=== PATIENT | female | born 1945 | race Caucasian/White ===

== ENCOUNTER 2019-01-28 10:53 | Inpatient (IN) | payer MEDICARE, OTHER ==
[2019-01-28] MEDS ORDERED: ACETAMINOPHEN TAB 500 MG TAB PO STA (11:16)
[2019-01-28] MEDS ORDERED: SODIUM CHLORIDE 0.9% 1,000 ML IV STA (11:16)
[2019-01-28] MEDS ORDERED: ONDANSETRON 4 MG/2 ML VIAL IVP STA (11:17)
--- NOTE | 2019-01-28 11:29 | ED ---
General Adult HPI - General Chief complaint: Fever Stated complaint: poss uti Time Seen by Provider: 01/28/19 11:07 Source: patient, family, EMS Mode of arrival: EMS Limitations: physical limitation - History of Present Illness Initial comments: Patient presents to the ED by ambulance for evaluation with her son at bedside. Per son, the patient has gradually been becoming more generally weak over the past week or so. Patient also reports having a cough, runny nose, urinary frequency and nausea over the past week or so. Per son, the patient also slid out of her bed onto the carpeted floor 2 days ago. Patient denies any injury from her fall, and she denies head injury or LOC, but she does admit to having bilateral groin pain of uncertain chronicity. Patient is noted to have a fever on arrival to the ED, and she denies taking any antipyretic medication today. Patient denies headache, focal numbness/weakness/neuro deficit, neck or back pain, sore throat, chest pain, shortness of breath, hemoptysis, palpitations, abdominal pain, vomiting or diarrhea, bloody or melanotic stool, dysuria, hematuria, rash, or any other symptoms or complaints. Patient was given a 250 mL IV fluid bolus by EMS. - Related Data Home Medications Medication Instructions Recorded Confirmed Aspirin 81 mg PO DAILY 11/28/15 12/06/15 Atorvastatin [Lipitor] 10 mg PO DAILY 11/28/15 12/06/15 Carbidopa-Levodopa 25-100 mg 1 each PO TID 11/28/15 12/06/15 [Sinemet 25-100 mg] Losartan Potassium [Cozaar] 100 mg PO DAILY 11/28/15 12/06/15 Metoprolol Succinate (ER) [Toprol 50 mg PO DAILY 11/28/15 12/06/15 XL] Multivit-Min/Iron/Folic/Lutein 1 each PO DAILY 11/28/15 12/06/15 [Centrum Silver Women Tablet] [place]-3 Fatty Acids/Fish Oil [Fish 1 each PO TID 11/28/15 12/06/15 Oil 1,000 mg Softgel] amLODIPine BESYLATE [Norvasc] 10 mg PO DAILY 11/28/15 12/06/15 ALPRAZolam [Xanax] 0.25 mg PO TID PRN 12/06/15 12/06/15 Baclofen 10 mg PO TID PRN 12/06/15 12/06/15 traMADol HCL [Ultram] 50 mg PO Q6HR PRN 12/06/15 12/06/15 Previous Rx's Medication Instructions Recorded Cephalexin [Keflex] 500 mg PO Q8HR #10 cap 12/07/15 Allergies Allergy/AdvReac Type Severity Reaction Status Date / Time No Known Allergies Allergy Verified 01/28/19 11:17 Review of Systems ROS Statement: Those systems with pertinent positive or pertinent negative responses have been documented in the HPI. ROS Other: All systems not noted in ROS Statement are negative. Past Medical History Past Medical History: Osteoarthritis (OA) Additional Past Medical History / Comment(s): SEE DR LOU'S H&P,PARKINSON'S,100% OCCLUDED RIGHT CAROTED ARTERY,HX KIDNEY STONES, History of Any Multi-Drug Resistant Organisms: None Reported Past Surgical History: Joint Replacement, Orthopedic Surgery Additional Past Surgical History / Comment(s): RIGHT ANKLE REPAIRED,LEFT KNEE REPLACED Past Anesthesia/Blood Transfusion Reactions: No Reported Reaction Past Psychological History: Anxiety Smoking Status: Former smoker Past Alcohol Use History: None Reported Past Drug Use History: None Reported - Past Family History Mother Family Medical History: No Reported History Father Family Medical History: AICD/Pacemaker Sister(s) Family Medical History: Cancer Additional Family Medical History / Comment(s): BREAST General Exam General appearance: alert, in no apparent distress Head exam: Present: atraumatic, normocephalic Eye exam: Present: normal appearance, PERRL, EOMI ENT exam: Present: normal oropharynx, mucous membranes dry Neck exam: Present: normal inspection, other (Trachea is in midline). Absent: tenderness, meningismus Respiratory exam: Present: normal lung sounds bilaterally. Absent: respiratory distress, wheezes, rales, rhonchi, stridor Cardiovascular Exam: Present: regular rate, normal rhythm, normal heart sounds, other (Normal radial pulses bilaterally) GI/Abdominal exam: Present: soft. Absent: distended, tenderness, guarding External exam: Present: normal external exam. Absent: erythema Extremities exam: Present: other (Ecchymosis is noted to right buttock region posteriorly; pelvis is stable and nontender). Absent: tenderness, pedal edema, calf tenderness Back exam: Absent: tenderness, CVA tenderness (R), CVA tenderness (L) Neurological exam: Present: alert, oriented X3. Absent: motor sensory deficit Psychiatric exam: Present: normal affect, normal mood Skin exam: Present: warm, dry, intact, normal color. Absent: rash Course Vital Signs 01/28/19 01/28/19 01/28/19 11:04 11:20 12:05 Temperature 102.5 F H Pulse Rate 69 68 69 Respiratory 18 18 18 Rate Blood Pressure 75/50 104/50 100/85 O2 Sat by Pulse 93 L 94 L 94 L Oximetry 01/28/19 01/28/19 12:58 13:33 Temperature 100.8 F H Pulse Rate 60 60 Respiratory 18 18 Rate Blood Pressure 86/45 91/48 O2 Sat by Pulse 93 L 93 L Oximetry - Reevaluation(s) Reevaluation #1: 01/28/19 12:59 Patient remains alert and breathing comfortably, and she denies development of any new symptoms while in the ED. Patient's blood pressure has improved with IV fluid bolus. IV antibiotics are currently infusing. Patient and son are aware of the patient's test results, and they both agree with hospital admission at t his time. 01/28/19 13:53 Case, H&P, test results and ED management thus far were discussed with Dr. Francis (hospitalist). She accepts hospital floor admission. She has no further recommendations at this time. EKG Findings - EKG Comments: EKG Findings:: Normal sinus rhythm, no ectopy, right bundle branch block, ventricular rate of 68 bpm, normal MI interval, QRS interval of 152 ms, normal QT interval, inferolateral T-wave abnormality Medical Decision Making - Medical Decision Making I suspect that that the patient's fever and symptoms are likely secondary to UTI, as well as community-acquired pneumonia. Patient has been treated with IV fluids and IV antibiotics and ED. Given the patient's low blood pressure, patient was given a 30 mL/kg IV fluid bolus (which is still infusing at this time). Patient's blood pressure has improved. Patient's lactic acid level is within normal limits. Patient's troponin is just minimally elevated, and patient denies having any chest pain or dyspnea. I suspect that the patient's elevated troponin is likely secondary to her infectious process. Patient has been accepted for hospital admission by Dr. Francis. - Lab Data Result diagrams: 01/28/19 11:25 01/28/19 11:25 Lab Results 01/28/19 01/28/19 01/28/19 Range/Units 11:25 11:25 11:25 WBC 10.5 (3.8-10.6) k/uL RBC 4.63 (3.80-5.40) m/uL Hgb 14.4 (11.4-16.0) gm/dL Hct 42.2 (34.0-46.0) % MCV 91.2 (80.0-100.0) fL MCH 31.2 (25.0-35.0) pg MCHC 34.2 (31.0-37.0) g/dL RDW 12.8 (11.5-15.5) % Plt Count 129 L (150-450) k/uL Neutrophils % 95 % Lymphocytes % 2 % Monocytes % 2 % Eosinophils % 0 % Basophils % 0 % Neutrophils # 9.9 H (1.3-7.7) k/uL Lymphocytes # 0.2 L (1.0-4.8) k/uL Monocytes # 0.2 (0-1.0) k/uL Eosinophils # 0.0 (0-0.7) k/uL Basophils # 0.0 (0-0.2) k/uL PT (9.0-12.0) sec INR (<1.2) APTT (22.0-30.0) sec Sodium 132 L (137-145) mmol/L Potassium 3.8 (3.5-5.1) mmol/L Chloride 97 L (98-107) mmol/L Carbon Dioxide 22 (22-30) mmol/L Anion Gap 13 mmol/L BUN 47 H (7-17) mg/dL Creatinine 1.84 H (0.52-1.04) mg/dL Est GFR (CKD-EPI)AfAm 31 (>60 ml/min/1.73 sqM) Est GFR (CKD-EPI)NonAf 27 (>60 ml/min/1.73 sqM) Glucose 96 (74-99) mg/dL Plasma Lactic Acid Dario 1.9 (0.7-2.0) mmol/L Calcium 8.4 (8.4-10.2) mg/dL Total Bilirubin 1.8 H (0.2-1.3) mg/dL AST 61 H (14-36) U/L ALT 16 (9-52) U/L Alkaline Phosphatase 93 (38-126) U/L Troponin I (0.000-0.034) ng/mL Total Protein 6.0 L (6.3-8.2) g/dL Albumin 3.0 L (3.5-5.0) g/dL Lipase 55 (23-300) U/L Urine Color Urine Appearance (Clear) Urine pH (5.0-8.0) Ur Specific [place] (1.001-1.035) Urine Protein (Negative) Urine Glucose (UA) (Negative) Urine Ketones (Negative) Urine Blood (Negative) Urine Nitrite (Negative) Urine Bilirubin (Negative) Urine Urobilinogen (<2.0) mg/dL Ur Leukocyte Esterase (Negative) Urine RBC (0-5) /hpf Urine WBC (0-5) /hpf Urine WBC Clumps (None) /hpf Urine Bacteria (None) /hpf Urine Mucus (None) /hpf Influenza Type A RNA (Not Detectd) Influenza Type B (PCR) (Not Detectd) 01/28/19 01/28/19 01/28/19 Range/Units 11:25 11:25 11:53 WBC (3.8-10.6) k/uL RBC (3.80-5.40) m/uL Hgb (11.4-16.0) gm/dL Hct (34.0-46.0) % MCV (80.0-100.0) fL MCH (25.0-35.0) pg MCHC (31.0-37.0) g/dL RDW (11.5-15.5) % Plt Count (150-450) k/uL Neutrophils % % Lymphocytes % % Monocytes % % Eosinophils % % Basophils % % Neutrophils # (1.3-7.7) k/uL Lymphocytes # (1.0-4.8) k/uL Monocytes # (0-1.0) k/uL Eosinophils # (0-0.7) k/uL Basophils # (0-0.2) k/uL PT 14.1 H (9.0-12.0) sec INR 1.4 H (<1.2) APTT 34.0 H (22.0-30.0) sec Sodium (137-145) mmol/L Potassium (3.5-5.1) mmol/L Chloride (98-107) mmol/L Carbon Dioxide (22-30) mmol/L Anion Gap mmol/L BUN (7-17) mg/dL Creatinine (0.52-1.04) mg/dL Est GFR (CKD-EPI)AfAm (>60 ml/min/1.73 sqM) Est GFR (CKD-EPI)NonAf (>60 ml/min/1.73 sqM) Glucose (74-99) mg/dL Plasma Lactic Acid Dario (0.7-2.0) mmol/L Calcium (8.4-10.2) mg/dL Total Bilirubin (0.2-1.3) mg/dL AST (14-36) U/L ALT (9-52) U/L Alkaline Phosphatase (38-126) U/L Troponin I 0.039 H* (0.000-0.034) ng/mL Total Protein (6.3-8.2) g/dL Albumin (3.5-5.0) g/dL Lipase (23-300) U/L Urine Color Urine Appearance (Clear) Urine pH (5.0-8.0) Ur Specific [place] (1.001-1.035) Urine Protein (Negative) Urine Glucose (UA) (Negative) Urine Ketones (Negative) Urine Blood (Negative) Urine Nitrite (Negative) Urine Bilirubin (Negative) Urine Urobilinogen (<2.0) mg/dL Ur Leukocyte Esterase (Negative) Urine RBC (0-5) /hpf Urine WBC (0-5) /hpf Urine WBC Clumps (None) /hpf Urine Bacteria (None) /hpf Urine Mucus (None) /hpf Influenza Type A RNA Not Detected (Not Detectd) Influenza Type B (PCR) Not Detected (Not Detectd) 01/28/19 Range/Units 12:05 WBC (3.8-10.6) k/uL RBC (3.80-5.40) m/uL Hgb (11.4-16.0) gm/dL Hct (34.0-46.0) % MCV (80.0-100.0) fL MCH (25.0-35.0) pg MCHC (31.0-37.0) g/dL RDW (11.5-15.5) % Plt Count (150-450) k/uL Neutrophils % % Lymphocytes % % Monocytes % % Eosinophils % % Basophils % % Neutrophils # (1.3-7.7) k/uL Lymphocytes # (1.0-4.8) k/uL Monocytes # (0-1.0) k/uL Eosinophils # (0-0.7) k/uL Basophils # (0-0.2) k/uL PT (9.0-12.0) sec INR (<1.2) APTT (22.0-30.0) sec Sodium (137-145) mmol/L Potassium (3.5-5.1) mmol/L Chloride (98-107) mmol/L Carbon Dioxide (22-30) mmol/L Anion Gap mmol/L BUN (7-17) mg/dL Creatinine (0.52-1.04) mg/dL Est GFR (CKD-EPI)AfAm (>60 ml/min/1.73 sqM) Est GFR (CKD-EPI)NonAf (>60 ml/min/1.73 sqM) Glucose (74-99) mg/dL Plasma Lactic Acid Dario (0.7-2.0) mmol/L Calcium (8.4-10.2) mg/dL Total Bilirubin (0.2-1.3) mg/dL AST (14-36) U/L ALT (9-52) U/L Alkaline Phosphatase (38-126) U/L Troponin I (0.000-0.034) ng/mL Total Protein (6.3-8.2) g/dL Albumin (3.5-5.0) g/dL Lipase (23-300) U/L Urine Color Yellow Urine Appearance Cloudy H (Clear) Urine pH 5.5 (5.0-8.0) Ur Specific [place] 1.013 (1.001-1.035) Urine Protein 1+ H (Negative) Urine Glucose (UA) Negative (Negative) Urine Ketones Negative (Negative) Urine Blood Moderate H (Negative) Urine Nitrite Negative (Negative) Urine Bilirubin Negative (Negative) Urine Urobilinogen 2.0 (<2.0) mg/dL Ur Leukocyte Esterase Large H (Negative) Urine RBC 33 H (0-5) /hpf Urine WBC 158 H (0-5) /hpf Urine WBC Clumps Many H (None) /hpf Urine Bacteria Many H (None) /hpf Urine Mucus Rare H (None) /hpf Influenza Type A RNA (Not Detectd) Influenza Type B (PCR) (Not Detectd) - Radiology Data Radiology results: image reviewed (Chest x-ray shows cardiomegaly and left basilar infiltrate; pelvis x-ray is negative for fracture or dislocation) Disposition Clinical Impression: Generalized weakness, Acute febrile illness, Fall, Contusion, buttock, UTI (urinary tract infection), Acute renal insufficiency, Pneumonia, Elevated troponin Disposition: ADMITTED IP TO THIS HOSP Condition: Stable Is patient prescribed a controlled substance at d/c from ED?: No Referrals: Lexi Davis MD [Primary Care Provider] - 1-2 days Decision Date: 01/28/19 Decision Time: 13:53
[2019-01-28 11:45] LABS: Basophils % (A) 0 %; Eosinophils % (A) 0 %; HCT 42.2 % (34.0-46.0); HGB 14.4 gm/dL (11.4-16.0); Lymphocytes # (A) 0.2 k/uL (1.0-4.8); Lymphocytes % (A) 2 %; MCH 31.2 pg (25.0-35.0); MCHC 34.2 g/dL (31.0-37.0); MCV 91.2 fL (80.0-100.0); Mean Platelet Volume 7.7; Monocytes # (A) 0.2 k/uL (0-1.0); Monocytes % (A) 2 %; Neutrophils # (A) 9.9 k/uL (1.3-7.7); Neutrophils % (A) 95 %; Platelet Count 129 k/uL (150-450); RBC 4.63 m/uL (3.80-5.40); RDW 12.8 % (11.5-15.5); WBC 10.5 k/uL (3.8-10.6)
[2019-01-28 11:58] LABS: Calcium 8.4 mg/dL (8.4-10.2); Potassium 3.8 mmol/L (3.5-5.1); Total Bilirubin 1.8 mg/dL (0.2-1.3)
[2019-01-28 12:17] LABS: Appearance,Urine Cloudy (Clear); Bacteria,Urine Many /hpf; Bilirubin,Urine Negative (Negative); Blood,Urine Moderate (Negative); Color,Urine Yellow; Glucose,Urine (UA) Negative (Negative); Ketones,Urine Negative (Negative); Leukocyte Esterase,Urine Large (Negative); Mucus,Urine Rare /hpf; Nitrite,Urine Negative (Negative); PH, Urine 5.5 (5.0-8.0); Protein,Urine 1+ (Negative); RBC,Urine 33 /hpf (0-5); Specific Gravity,Urine 1.013 (1.001-1.035)
[2019-01-28] MEDS ORDERED: LACTATED RINGERS 1,000 ML IV ONE ×2 (12:30)
[2019-01-28] MEDS ORDERED: AZITHROMYCIN 500 MG in SODIUM CHLORIDE 0.9% 250 ML IVPB STA (12:38)
--- NOTE | 2019-01-28 12:39 | XR ---
EXAMINATION TYPE: XR chest 2V DATE OF EXAM: 01/28/2019 COMPARISON: Prior chest x-ray December 07, 2015. HISTORY: Cough and fever. TECHNIQUE: Frontal and lateral views of the chest are obtained. FINDINGS: The cardiac silhouette size is enlarged and more prominent from prior study with persisten t dual-lead pacemaker. New patchy left basilar opacity. Exam suboptimal due to patient's large body h abitus particularly lateral view. No pleural effusion or pneumothorax bilaterally. The osseous struct ures are intact. IMPRESSION: Cardiomegaly with new patchy left basilar acute infiltrate and/or atelectasis is thought present.
--- NOTE | 2019-01-28 12:40 | XR ---
EXAMINATION TYPE: XR pelvis AP view DATE OF EXAM: 01/28/2019 CLINICAL HISTORY: Pain after fall injury 2 days ago. TECHNIQUE: 2 frontal views of the pelvis are obtained. COMPARISON: None. FINDINGS: Osseous structures are demineralized which is noted lower radiographic sensitivity. Lucency from overlying bowel gas also noted making evaluation suboptimal. There is no acute fracture/disloca tion evident in the pelvis. Asymmetric narrowing and sclerosis left sacroiliac joint. Fairly moderate axial joint space loss both hips. Sclerosis at level of pubic symphysis. Vascular calcification lef t pelvis. IMPRESSION: There is no acute fracture or dislocation in the pelvis.
[2019-01-28 13:22] LABS: INR 1.4 (<1.2); Prothrombin Time 14.1 sec (9.0-12.0)
[2019-01-28] MEDS ORDERED: ASPIRIN 81 MG PO STA (13:42)
[2019-01-28] MEDS ORDERED: ALPRAZolam 0.25 MG TAB PO PRN (13:57)
[2019-01-28] MEDS ORDERED: LACTATED RINGERS 1,000 ML IV SCH (14:30)
[2019-01-28] MEDS ORDERED: ACETAMINOPHEN TAB 325 MG TAB PO PRN (17:08)
[2019-01-28] MEDS ORDERED: MELATONIN 3 MG TABLET PO PRN (17:08)
[2019-01-28] MEDS ORDERED: NALOXONE 0.4 MG/ML 1 ML VIAL IV PRN (17:08)
[2019-01-28] MEDS ORDERED: ONDANSETRON 4 MG/2 ML VIAL IVP PRN (17:08)
[2019-01-28] MEDS ORDERED: BENZOCAINE/MENTHOL LOZENG 1 EACH LOZENGE MUCOUS MEM PRN (17:08)
--- NOTE | 2019-01-28 17:12 | P.HPIM ---
History of Present Illness H&P Date: 01/28/19 Chief Complaint: weakness Patient is a 73-year-old female patient of Dr. Davis past medical history of hypertension, dyslipidemia, A. 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 On arrival to the ER she was found to be febrile with a T-max of 102.5 and hypotensive with blood pressure of 75/50. Initial laboratory analysis demonstrated acute kidney injury with a creatinine of 1.84, elevated bilirubin at 1.8, AST is 61, troponin 0.039, sodium 132, white blood cell count was normal at 10.5, and mild thrombocytopenia with platelets of 129. Urinary tract infection. Chest x-ray showed possible left basilar infiltrate or atelectasis. She was started on Rocephin and Zithromax in the ER. She received 3 L of fluid with a blood pressure improved to 100 systolic. She was subsequently admitted to the selective care unit. Patient seen and examined at bedside with family present. She reports that she hasn't been feeling well for last 1-2 weeks. She's been having some nausea and decreased appetite. She's been having chills but has not taken her fever. She has been having a cough productive of white sputum as well as a runny nose. She reports that she had Evelyn's this morning when EMS came in. She denies any headaches but has had some intermittent blurry eyes. She has felt very weak and tired and she's been having difficulty ambulating. She also reports very frequent urination with intermittent dysuria area and she's had an accident which has never happened before. She is feeling overall crampy week. She has had a couple of episodes of diarrhea but nothing consistent. She did have a slight fall 2 days ago where she slid out of bed and fell onto her bottom. Since that point in time she has been having pain in her coccyx and both hips and groin. She has still been able to ambulate. She is not having any recent changes in medications. She is being treated with an aromatase inhibitor and follows with Dr. Stacy for her cancer. She is also followed with radiation oncology. Review of Systems Pertinent positives and negatives as discussed in HPI, a complete review of systems was performed and all other systems are negative. Past Medical History Past Medical History: Cancer, Osteoarthritis (OA) Additional Past Medical History / Comment(s): PARKINSON'S,100% OCCLUDED RIGHT CAROTED ARTERY,HX KIDNEY STONES, stage 1 right breast ductal carcinoma with radiation therapy, atrial fibrillation and tachybradycardia syndrome, arthritis, hypertension, dyslipidemia, cleft palate History of Any Multi-Drug Resistant Organisms: None Reported Past Surgical History: Joint Replacement, Orthopedic Surgery, Pacemaker Additional Past Surgical History / Comment(s): RIGHT ANKLE REPAIRED,LEFT KNEE REPLACED, left breast lumpectomy 2 Past Anesthesia/Blood Transfusion Reactions: No Reported Reaction Type of Cardiac Device: Permanent Pacemaker Device Placement Date:: 2015 Past Psychological History: Anxiety Smoking Status: Former smoker Past Alcohol Use History: None Reported Additional Past Alcohol Use History / Comment(s): QUIT SMOKING 2003,SMOKED APPROX 30 YRS <1PPD Past Drug Use History: None Reported Additional History: Lives with her son uses a walker or cane as needed - Past Family History Mother Family Medical History: No Reported History Father Family Medical History: AICD/Pacemaker Sister(s) Family Medical History: Cancer Additional Family Medical History / Comment(s): BREAST Medications and Allergies Home Medications Medication Instructions Recorded Confirmed Type Aspirin 81 mg PO DAILY 11/28/15 01/28/19 History Atorvastatin [Lipitor] 10 mg PO HS 11/28/15 01/28/19 History Carbidopa-Levodopa 25-100 mg 1 tab PO TID 11/28/15 01/28/19 History [Sinemet 25-100 mg] Losartan Potassium [Cozaar] 100 mg PO DAILY@1300 11/28/15 01/28/19 History Metoprolol Succinate (ER) [Toprol 50 mg PO DAILY 11/28/15 01/28/19 History XL] Multivit-Min/Iron/Folic/Lutein 1 tab PO DAILY 11/28/15 01/28/19 History [Centrum Silver Women Tablet] [place]-3 Fatty Acids/Fish Oil [Fish 1 cap PO TID 11/28/15 01/28/19 History Oil 1,000 mg Softgel] amLODIPine BESYLATE [Norvasc] 10 mg PO DAILY 11/28/15 01/28/19 History Acetaminophen [Tylenol] 500 mg PO Q4-6H PRN 01/28/19 01/28/19 History Alendronate Sodium [Fosamax] 70 mg PO WONG 01/28/19 01/28/19 History Exemestane [Aromasin] 25 mg PO DAILY 01/28/19 01/28/19 History Flecainide [Tambocor] 50 mg PO Q12HR 01/28/19 01/28/19 History Rivaroxaban [Xarelto] 15 mg PO HS 01/28/19 01/28/19 History Allergies Allergy/AdvReac Type Severity Reaction Status Date / Time No Known Allergies Allergy Verified 01/28/19 14:05 Physical Exam Osteopathic Statement: *. No significant issues noted on an osteopathic structural exam other than those noted in the History and Physical/Consult. Vitals: Vital Signs Temp Pulse Resp BP BP Pulse Ox 01/28/19 16:20 98.1 F 18 100/59 97 01/28/19 15:00 99.1 F 60 100/52 97 01/28/19 14:19 98.9 F 62 18 90/50 93 L 01/28/19 13:33 60 18 91/48 93 L 01/28/19 12:58 100.8 F H 60 18 86/45 93 L 01/28/19 12:05 69 18 100/85 94 L 01/28/19 11:20 68 18 104/50 94 L 01/28/19 11:04 102.5 F H 69 18 75/50 93 L Intake and Output 01/28/19 01/28/19 01/28/19 06:59 14:59 22:59 Intake Total 3000 Balance 3000 Intake: Amount of Fluid Infused ( 3000 ml) Other: Weight 106.594 kg 106.594 kg General: Ill appearing, mild distress secondary to pain, appears at stated age, obese Derm: Multiple areas of ecchymoses across back, large area of ecchymoses on left buttock and left lateral hip, warm, dry Head: atraumatic, normocephalic, symmetric Eyes: EOMI, no lid lag, anicteric sclera, pupils equal round reactive to light ENT: Nose and ears atraumatic, no thrush, no pharyngeal erythema Neck: No thyromegaly, no cervical lymphadenopathy, trachea midline, supple Mouth: no lip lesion, mucus membranes moist, poor dentition Cardiovascular: S1S2 reg, no murmur, positive posterior tibial pulse bilateral, no edema, capillary refill less than 2 seconds Lungs: Decreased breath sounds bilateral , no accessory muscle use Abdominal: soft, nontender to palpation, no guarding, no appreciable organomegaly, normal bowel sounds Ext: no gross muscle atrophy, muscle strength 4 out of 5 in all 4 extremities grossly, no contractures, Neuro: CN II-XI grossly intact, light touch intact all 4 extremities, finger to nose poor on left but intact on right, intention tremor with left hand greater than right, no cogwheel rigidity Psych: Alert, oriented, appropriate affect Results CBC & Chem 7: 01/28/19 11:25 01/28/19 11:25 Labs: Abnormal Lab Results - Last 24 Hours (Table) 01/28/19 01/28/19 01/28/19 Range/Units 11:25 11:25 11:25 Plt Count 129 L (150-450) k/uL Neutrophils # 9.9 H (1.3-7.7) k/uL Lymphocytes # 0.2 L (1.0-4.8) k/uL PT 14.1 H (9.0-12.0) sec INR 1.4 H (<1.2) APTT 34.0 H (22.0-30.0) sec Sodium 132 L (137-145) mmol/L Chloride 97 L (98-107) mmol/L BUN 47 H (7-17) mg/dL Creatinine 1.84 H (0.52-1.04) mg/dL Total Bilirubin 1.8 H (0.2-1.3) mg/dL AST 61 H (14-36) U/L Troponin I (0.000-0.034) ng/mL Total Protein 6.0 L (6.3-8.2) g/dL Albumin 3.0 L (3.5-5.0) g/dL Urine Appearance (Clear) Urine Protein (Negative) Urine Blood (Negative) Ur Leukocyte Esterase (Negative) Urine RBC (0-5) /hpf Urine WBC (0-5) /hpf Urine WBC Clumps (None) /hpf Urine Bacteria (None) /hpf Urine Mucus (None) /hpf 01/28/19 01/28/19 Range/Units 11:25 12:05 Plt Count (150-450) k/uL Neutrophils # (1.3-7.7) k/uL Lymphocytes # (1.0-4.8) k/uL PT (9.0-12.0) sec INR (<1.2) APTT (22.0-30.0) sec Sodium (137-145) mmol/L Chloride (98-107) mmol/L BUN (7-17) mg/dL Creatinine (0.52-1.04) mg/dL Total Bilirubin (0.2-1.3) mg/dL AST (14-36) U/L Troponin I 0.039 H* (0.000-0.034) ng/mL Total Protein (6.3-8.2) g/dL Albumin (3.5-5.0) g/dL Urine Appearance Cloudy H (Clear) Urine Protein 1+ H (Negative) Urine Blood Moderate H (Negative) Ur Leukocyte Esterase Large H (Negative) Urine RBC 33 H (0-5) /hpf Urine WBC 158 H (0-5) /hpf Urine WBC Clumps Many H (None) /hpf Urine Bacteria Many H (None) /hpf Urine Mucus Rare H (None) /hpf Microbiology - Last 24 Hours (Table) 01/28/19 12:05 Urine Culture - Preliminary Urine,Catheterized Chest x-ray: report reviewed Thrombosis Risk Factor Assmnt - DVT/VTE Prophylaxis DVT/VTE Prophylaxis: Mechanical Prophylaxis ordered - Choose All That Apply Any of the Below Risk Factors Present?: Yes Each Factor Represents 1 point: Abnormal pulmonary function (COPD) Other Risk Factors: Yes Each Risk Factor Represents 3 Points: Age 75 years or older Thrombosis Risk Factor Assessment Total Risk Factor Score: 4 Thrombosis Risk Factor Assessment Level: Moderate Risk Assessment and Plan Assessment: Pyelonephritis with sepsis -Continue with IV fluids -Rocephin -Blood and urine cultures pending -Check renal ultrasound to rule out possibility of coexisting kidney stone -Hold all blood pressure medications Acute kidney injury secondary to sepsis, hyponatremia -IV fluids -Avoid additional nephrotoxic agents -Repeat basic metabolic profile in a.m. -Cozaar Elevated troponin likely reflective of stress-induced ischemia -Continue aspirin -No beta blockers secondary to hypotension -Serial troponins -Consult cardiology of troponin elevates significantly Bilateral groin pain -Trial of [place] -If pain continues consult or so in a.m. Thrombocytopenia -Suspect reactive -Follow CBC Elevated AST -Likely reflective of acute illness -Repeat complete metabolic profile in a.m. -Acute elevating will perform gallbladder ultrasound Breast cancer -Follows with Dr. Stacy -Continue aromatase inhibitor Dyslipidemia -Continue fish oil tablets History of tachybrady syndrome and atrial fibrillation status post permanent pacemaker -Telemetry -Xarelto Parkinson's disease - Continue sinemet The patient is admitted with an anticipated greater than 2 midnight stay for evaluation of UTI wtih sepsis and refractory hypotension. Surrogate decision-maker: Estrella Maddox CODE STATUS:Full, would not want life long machines and tubes DVT prophylaxis: SCDs Discussed with: Patient, nursing, family Anticipated discharge date: 3-[address]: home A total of 65 minutes was spent on the care of this complex patient more than 50% of the time was spent in counseling and care coordination.
[2019-01-28] MEDS: HYDROcodone/APAP 5-325MG 1 EACH TAB PO PRN ×2 (17:13→22:24)
[2019-01-28] MEDS: CARBIDOPA-LEVODOPA 25-100 MG 1 EACH TAB PO SCH ×2 (17:13→20:13)
[2019-01-28] MEDS: SODIUM CHLORIDE 0.9% 1,000 ML IV SCH (17:42)
[2019-01-28] MEDS: RIVAROXABAN 15 MG TAB PO SCH (20:12)
[2019-01-28] MEDS: FLECAINIDE 50 MG TAB PO SCH (20:13)
[2019-01-28] MEDS ORDERED: NON FORMULARY DRUG (Omega-3 Fatty Acids/Fish Oil [Fish Oil 1,000 Mg Softgel] 1 CAP) PO SCH (22:00)
[2019-01-29] MEDS: SODIUM CHLORIDE 0.9% 1,000 ML IV SCH ×3 (02:16→18:06)
[2019-01-29 06:29] LABS: Albumin 2.5 g/dL (3.5-5.0); Calcium 7.8 mg/dL (8.4-10.2); Potassium 3.8 mmol/L (3.5-5.1); Total Bilirubin 1.4 mg/dL (0.2-1.3); Total Protein 5.3 g/dL (6.3-8.2)
[2019-01-29 07:31] LABS: Basophils % (A) 0 %; Eosinophils % (A) 0 %; HGB 12.4 gm/dL (11.4-16.0); Lymphocytes # (A) 0.4 k/uL (1.0-4.8); Lymphocytes % (A) 3 %; MCH 31.6 pg (25.0-35.0); MCHC 34.4 g/dL (31.0-37.0); MCV 91.9 fL (80.0-100.0); Mean Platelet Volume 8.9; Monocytes # (A) 0.6 k/uL (0-1.0); Monocytes % (A) 4 %; Neutrophils # (A) 12.5 k/uL (1.3-7.7); Neutrophils % (A) 89 %; Platelet Count 101 k/uL (150-450); RBC 3.91 m/uL (3.80-5.40); RDW 12.9 % (11.5-15.5); WBC 14.1 k/uL (3.8-10.6)
--- NOTE | 2019-01-29 08:11 | XR ---
EXAMINATION TYPE: XR chest 1V portable DATE OF EXAM: 01/29/2019 COMPARISON: Prior chest x-ray 01/28/2019 HISTORY: Pneumonia, chest pain TECHNIQUE: Single frontal view of the chest is obtained. FINDINGS: Exam somewhat limited technically. There is no focal air space opacity, pleural effusion, o r pneumothorax seen. The cardiac silhouette size is stable and enlarged, generator is present in the left pectoral region, leads in right atrium and ventricle. The aorta is dense. There are overlying cardiac leads. The osseous structures are intact. Technique somewhat apical lordotic. IMPRESSION: Stable cardiomegaly. Airspace disease described on prior report not as well seen likely due to technique.
[2019-01-29] MEDS ORDERED: ATORVASTATIN 10 MG TAB PO SCH (09:00)
[2019-01-29] MEDS ORDERED: amLODIPine 10 MG TAB PO SCH (09:00)
[2019-01-29] MEDS ORDERED: LOSARTAN 50 MG TAB PO SCH (09:00)
[2019-01-29] MEDS ORDERED: METOPROLOL SUCCINATE (ER) 50 MG TAB.ER.24H PO SCH (09:00)
--- NOTE | 2019-01-29 09:10 | US ---
EXAMINATION TYPE: US kidneys/renal and bladder DATE OF EXAM: 01/29/2019 COMPARISON: NONE CLINICAL HISTORY: UTI; Pneumonia EXAM MEASUREMENTS: Right Kidney: 10.5 x 5.7 x 5.3 cm Left Kidney: 11.1 x 5.7 x 5.5 cm Post Void Residual Volume: not assessed on inpatient Right Kidney: No evident mass ; small amount of ascites noted at hepatorenal recess Left Kidney: No evident mass, question some minimal caliectasis bilaterally Bladder: wnl Bilateral Jets seen: no, right ureteral jet not seen after 3 minute observation; only left ureteral jet was seen. Cholelithiasis noted incidentally. Cortical medullary differentiation is maintained. IMPRESSION: Minimal ascites. May be some minimal caliectasis bilaterally. Additional findings above.
[2019-01-29] MEDS: ASPIRIN 81 MG PO SCH (09:18)
[2019-01-29] MEDS: MULTIVITAMINS, THERA 1 EACH TAB PO SCH (09:18)
[2019-01-29] MEDS: EXEMESTANE 25 MG PO SCH (09:18)
[2019-01-29] MEDS: FLECAINIDE 50 MG TAB PO SCH ×2 (09:18→22:15)
[2019-01-29] MEDS: CARBIDOPA-LEVODOPA 25-100 MG 1 EACH TAB PO SCH ×3 (09:18→22:15)
[2019-01-29] MEDS ORDERED: SODIUM CHLORIDE 0.9% 500 ML 500 ML IV ONE (12:40)
--- NOTE | 2019-01-29 16:02 | P.PN ---
Subjective Progress Note Date: 01/29/19 (delayed charting seen at 0930) Principal diagnosis: weakness Patient is a 73-year-old female patient of Dr. Davis past medical history of hypertension, dyslipidemia, A. 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 On arrival to the ER she was found to be febrile with a T-max of 102.5 and hypotensive with blood pressure of 75/50. Initial laboratory analysis demonstrated acute kidney injury with a creatinine of 1.84, elevated bilirubin at 1.8, AST is 61, troponin 0.039, sodium 132, white blood cell count was normal at 10.5, and mild thrombocytopenia with platelets of 129. Urinary tract infection. Chest x-ray showed possible left basilar infiltrate or atelectasis. She was started on Rocephin and Zithromax in the ER. She received 3 L of fluid with a blood pressure improved to 100 systolic. She was subsequently admitted to the selective care unit. She was continued on IV fluids and antibiotics. Blood cultures came back with gram-negative bacilli. Repeat chest x-ray done on 01/29 did not demonstrate any acute process. She continued to have marginal blood pressures and her blood pressure medications were not reinitiated. Patient seen and examined at bedside. She is feeling much better than yesterday but still very weak. She is continuing to have some hip and low back pain however does getting better. She denies any nausea, vomiting, or diarrhea. She is having mild shortness of breath today compared to yesterday and some dry cough still. I explained to her about her bacteremia, and the fact that she king s not have pneumonia but does have a significant urinary tract infection. Objective - Vital Signs Vital signs: Vital Signs Temp 97 F L 01/29/19 14:07 Pulse 62 01/29/19 14:07 Resp 17 01/29/19 14:07 BP 137/87 01/29/19 14:07 Pulse Ox 94 L 01/29/19 14:07 Intake & Output 01/28/19 01/29/19 01/29/19 18:59 06:59 18:59 Intake Total 3200 775 1055 Output Total 300 1150 Balance 2900 -375 1055 Weight 106.594 kg 111.9 kg Intake: Amount of Fluid Infused ( 3000 ml) Intake, IV Titration 200 775 575 Amount Lactated Ringers 1,000 ml 200 @ 200 mls/hr IV .Q5H [facility] Rx#:[id number] Sodium Chloride 0.9% 1, 775 575 000 ml @ 75 mls/hr IV . [id number] [facility] Rx#:[id number] Oral 480 Output: Urine 300 1150 Other: Voiding Method Bedside Commode Bedside Commode # Voids 1 1 - Exam General: Ill-appearing, no distress, appears at stated age, obese Derm: warm, dry Head: atraumatic, normocephalic, symmetric Eyes: EOMI, no lid lag, anicteric sclera Mouth: no lip lesion, mucus membranes moist Cardiovascular: S1S2 reg, no murmur, positive posterior tibial pulse bilateral, Lungs: CTA bilateral, no rhonchi, no rales , no accessory muscle use Abdominal: soft, nontender to palpation, no guarding, no appreciable organomegaly Ext: no gross muscle atrophy, no edema, no contractures Neuro: CN II-XI grossly intact, no focal neuro deficits Psych: Alert, oriented, appropriate affect - Labs CBC & Chem 7: 01/29/19 06:01 01/29/19 06:01 Labs: Abnormal Lab Results - Last 24 Hours (Table) 01/28/19 01/29/19 01/29/19 Range/Units 16:38 06:01 06:01 WBC 14.1 H (3.8-10.6) k/uL Plt Count 101 L (150-450) k/uL Neutrophils # 12.5 H (1.3-7.7) k/uL Lymphocytes # 0.4 L (1.0-4.8) k/uL Sodium 135 L (137-145) mmol/L BUN 44 H (7-17) mg/dL Creatinine 1.52 H (0.52-1.04) mg/dL Glucose 67 L (74-99) mg/dL Calcium 7.8 L (8.4-10.2) mg/dL Total Bilirubin 1.4 H (0.2-1.3) mg/dL AST 65 H (14-36) U/L Troponin I 0.049 H* (0.000-0.034) ng/mL Total Protein 5.3 L (6.3-8.2) g/dL Albumin 2.5 L (3.5-5.0) g/dL Microbiology - Last 24 Hours (Table) 01/28/19 12:05 Urine Culture - Preliminary Urine,Catheterized Gram Neg Bacilli 01/28/19 11:25 Blood Culture Gram Stain - Preliminary Blood Blood Culture - Preliminary Gram Neg Bacilli 01/28/19 11:25 Blood Culture - Final Blood Assessment and Plan Assessment: Pyelonephritis with sepsis and gram-negative bacteremia -Continue with IV fluids decreased rate secondary to shortness of breath -Rocephin -Await final Blood and urine cultures -Renal ultrasound without signs of obstruction/stone -Hold all blood pressure medications -Consult ID Acute kidney injury secondary to sepsis, hyponatremia, improving -IV fluids decreased -Avoid additional nephrotoxic agents -Repeat basic metabolic profile in a.m. -Cozaar on hold Elevated troponin, reflective of laboratory abnormalities. Resolved on repeat troponin -Continue aspirin -No beta blockers secondary to hypotension -Serial troponins -Consult cardiology of troponin elevates significantly Bilateral groin pain, improving -Trial of [place] Thrombocytopenia, down trending -Suspect reactive -Follow CBC Elevated AST, improving -Likely reflective of acute illness -Repeat complete metabolic profile in a.m. -Acute elevating will perform gallbladder ultrasound Breast cancer -Follows with Dr. Stacy -Continue aromatase inhibitor Dyslipidemia -Continue fish oil tablets History of tachybrady syndrome and atrial fibrillation status post permanent pacemaker -Telemetry -Xarelto Parkinson's disease - Continue sinemet DVT prophylaxis: SCDs Discussed with: Patient, nursing, family Anticipated discharge date: 2-[address]: home A total of 35 minutes was spent on the care of this complex patient more than 50% of the time was spent in counseling and care coordination.
[2019-01-29] MEDS: ATORVASTATIN 10 MG TAB PO SCH (22:14)
[2019-01-29] MEDS: RIVAROXABAN 15 MG TAB PO SCH (22:15)
[2019-01-30 07:38] LABS: HCT 34.9 % (34.0-46.0); MCHC 34.5 g/dL (31.0-37.0); MCV 92.8 fL (80.0-100.0); Mean Platelet Volume 8.2; Platelet Count 121 k/uL (150-450); RBC 3.76 m/uL (3.80-5.40); WBC 14.8 k/uL (3.8-10.6)
[2019-01-30 07:40] LABS: Calcium 7.6 mg/dL (8.4-10.2); Magnesium 2.2 mg/dL (1.6-2.3); Potassium 3.5 mmol/L (3.5-5.1)
[2019-01-30] MEDS: MULTIVITAMINS, THERA 1 EACH TAB PO SCH (07:43)
[2019-01-30] MEDS: ASPIRIN 81 MG PO SCH (07:44)
[2019-01-30] MEDS: CARBIDOPA-LEVODOPA 25-100 MG 1 EACH TAB PO SCH ×3 (07:44→22:14)
[2019-01-30] MEDS: EXEMESTANE 25 MG PO SCH (07:44)
[2019-01-30] MEDS: FLECAINIDE 50 MG TAB PO SCH ×2 (07:44→22:14)
[2019-01-30] MEDS: SODIUM CHLORIDE 0.9% 1,000 ML IV SCH ×2 (09:29→20:33)
[2019-01-30] MEDS ORDERED: SODIUM CHLORIDE 0.9% 1,000 ML IV ONE ×2 (10:10→20:15)
[2019-01-30] MEDS ORDERED: IPRATROPIUM-ALBUTEROL 3 ML NEB INHALATION PRN (10:11)
[2019-01-30] MEDS ORDERED: BENZONATATE 100 MG CAP PO PRN (10:11)
--- NOTE | 2019-01-30 10:19 | P.PN ---
Subjective Progress Note Date: 01/30/19 Principal diagnosis: Patient is a 73-year-old female patient of Dr. Davis past medical history of hypertension, dyslipidemia, A. 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 On arrival to the ER she was found to be febrile with a T-max of 102.5 and hypotensive with blood pressure of 75/50. Initial laboratory analysis demonstrated acute kidney injury with a creatinine of 1.84, elevated bilirubin at 1.8, AST is 61, troponin 0.039, sodium 132, white blood cell count was normal at 10.5, and mild thrombocytopenia with platelets of 129. Urinary tract infection. Chest x-ray showed possible left basilar infiltrate or atelectasis. She was started on Rocephin and Zithromax in the ER. She received 3 L of fluid with a blood pressure improved to 100 systolic. She was subsequently admitted to the selective care unit. She was continued on IV fluids and antibiotics. Blood cultures came back with gram-negative bacilli. Repeat chest x-ray done on 01/29 did not demonstrate any acute process. She continued to have marginal blood p ressures and her blood pressure medications were not reinitiated. Patient seen and examined at bedside, somnolent but arousable continued to feel weak and fatigued, appetite is not the best. Febrile overnight T-max 101.4. Both urine and blood cultures growing E. coli with castillo sensitivities Objective - Vital Signs Vital signs: Vital Signs Temp 97.5 F L 01/30/19 05:21 Pulse 71 01/30/19 08:00 Resp 18 01/30/19 08:00 BP 89/47 01/30/19 05:21 Pulse Ox 95 01/30/19 05:21 Intake & Output 01/29/19 01/30/19 01/30/19 18:59 06:59 18:59 Intake Total 1291 Balance 1291 Intake: Intake, IV Titration 575 Amount Sodium Chloride 0.9% 1, 575 000 ml @ 75 mls/hr IV . [id number] [facility] Rx#:[id number] Oral 716 Other: Voiding Method Bedside Commode Bedside Commode Bedside Commode # Voids 1 1 - Exam General: Ill-appearing, no distress, appears at stated age, obese Derm: warm, dry Head: atraumatic, normocephalic, symmetric Eyes: EOMI, no lid lag, anicteric sclera Mouth: no lip lesion, mucus membranes moist Cardiovascular: S1S2 reg, no murmur, positive posterior tibial pulse bilateral, Lungs: CTA bilateral, no rhonchi, no rales , no accessory muscle use Abdominal: soft, nontender to palpation, no guarding, no appreciable organomegaly Ext: no gross muscle atrophy, no edema, no contractures Neuro: CN II-XI grossly intact, no focal neuro deficits Psych: Alert, oriented, appropriate affect - Labs CBC & Chem 7: 01/30/19 07:04 01/30/19 07:04 Labs: Abnormal Lab Results - Last 24 Hours (Table) 01/30/19 01/30/19 Range/Units 07:04 07:04 WBC 14.8 H (3.8-10.6) k/uL RBC 3.76 L (3.80-5.40) m/uL Plt Count 121 L (150-450) k/uL BUN 39 H (7-17) mg/dL Creatinine 1.30 H (0.52-1.04) mg/dL Calcium 7.6 L (8.4-10.2) mg/dL Microbiology - Last 24 Hours (Table) 01/28/19 12:05 Urine Culture - Final Urine,Catheterized Escherichia coli 01/28/19 11:25 Blood Culture Gram Stain - Final Blood Blood Culture - Final Escherichia coli Assessment and Plan Assessment: Pyelonephritis with sepsis and E. coli bacteremia -Continue with IV fluids decreased rate secondary to shortness of breath -Rocephin -Blood and urine cultures growing E. coli -Renal ultrasound without signs of obstruction/stone -Hold all blood pressure medications -Awaiting ID recommendations Acute kidney injury secondary to sepsis, hyponatremia, improving -IV fluids increased to NS @ 125 mL an hour with 20 mEq of potassium,1 LS NS bolus given -Avoid additional nephrotoxic agents -Repeat basic metabolic profile in a.m. -Cozaar on hold Elevated troponin, reflective of laboratory abnormalities. Resolved on repeat troponin -Continue aspirin -No beta blockers secondary to hypotension -Serial troponins -Consult cardiology of troponin elevates significantly Bilateral groin pain, improving -Trial of [place] Thrombocytopenia, down trending -Suspect reactive -Follow CBC Elevated AST, improving -Likely reflective of acute illness -Repeat complete metabolic profile in a.m. -Acute elevating will perform gallbladder ultrasound Breast cancer -Follows with Dr. Stacy -Continue aromatase inhibitor Dyslipidemia -Continue fish oil tablets History of tachybrady syndrome and atrial fibrillation status post permanent pacemaker -Telemetry -Xarelto Parkinson's disease - Continue sinemet DVT prophylaxis: SCDs Discussed with: Patient, nursing, family Anticipated discharge date: 2-[address]: home A total of 35 minutes was spent on the care of this complex patient more than 50% of the time was spent in counseling and care coordination.
[2019-01-30] MEDS: 0.9% NACL WITH KCL 20 MEQ/L 1,000 ML IV SCH ×2 (11:44→20:32)
[2019-01-30] MEDS: HYDROcodone/APAP 5-325MG 1 EACH TAB PO PRN (13:10)
--- NOTE | 2019-01-30 14:55 | P.CONS ---
History of Present Illness - Reason for Consult Consult date: 01/30/19 - Chief Complaint Weakness - History of Present Illness 73-year-old female reportedly lives independently with the care of her family members as needed presents to Hospital after she became weak and fell out of her bed striking her legs in the bed frame and landing on the floor She dora arently was so weak she could Get up and EMS was called and she was brought to the emergency center. At that point in time she's had a temperature of 102.5 a blood pressure only of 75/50. The patient received fluid resuscitation has had some improvement since. However there is evidence of a positive blood culture with gram-negative bacilli and urinalysis is markedly abnormal and urine culture with gram-negative bacilli. The patient originally was on the cardiac unit she's now been transferred to the medical unit with her improvement. However the positive blood cultures the consult was requested. As possible relates that she normally lives independently with the nursing staff is medically cleared at this time she is a 2 person assist. Review of Systems Patient relates that she feels still quite weak HEENT:Denies headache or acute visual change. Denies sinus or mouth discomforts. Denies neck stiffness or pain. Denies significant oral cavity pain. Denies difficulty on swallowing. Lungs: Denies significant shortness of breath, cough, sputum production, or hemoptysis. Cardiovascular: Denies significant shortness of breath, chest pain, chest wall p ain, orthopnea, dyspnea on exertion, syncope Gastrointestinal:Denies nausea, vomiting, diarrhea, constipation, hematemesis, melena, hematochezia. No no significant change of bowel habit noticed. Musculoskeletal: She has some discomfort her lower extremities after her fall but no open draining lesions or wounds are noted Skin: She has some bruising but has no other new acute complaint Neuro: Denies headache or visual change. Denies any new onset weakness or difficulty with ambulation. Denies falls or seizures. Psychiatric:Denies anxiety or depression. 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,HX KIDNEY STONES, stage 1 right breast ductal carcinoma with radiation therapy, atrial fibrillation and tachybradycardia syndrome, arthritis, hypertension, dyslipidemia, cleft palate History of Any Multi-Drug Resistant Organisms: None Reported Past Surgical History: Joint Replacement, Orthopedic Surgery, Pacemaker Additional Past Surgical History / Comment(s): RIGHT ANKLE REPAIRED,LEFT KNEE REPLACED, left breast lumpectomy 2 Past Anesthesia/Blood Transfusion Reactions: No Reported Reaction Type of Cardiac Device: Permanent Pacemaker Device Placement Date:: 2015 Past Psychological History: Anxiety Additional Psychological History / Comment(s): , lives independently but does help help from her children. Did not work outside of the home. No experience. No international travel. 2 pet dogs live in the home. Reports she stopped smoking greater than 10 years ago Smoking Status: Former smoker Past Alcohol Use History: None Reported Additional Past Alcohol Use History / Comment(s): QUIT SMOKING 2003,SMOKED APPROX 30 YRS <1PPD Past Drug Use History: None Reported - Past Family History Mother Family Medical History: No Reported History Father Family Medical History: AICD/Pacemaker Sister(s) Family Medical History: Cancer Additional Family Medical History / Comment(s): BREAST Medications and Allergies Home Medications and Allergies Comment(s): Current Medications Acetaminophen (Tylenol Tab) 650 mg PO Q6HR PRN PRN Reason: Mild Pain or Fever > 100.5 Last Admin: 01/29/19 22:15 Dose: 650 mg Documented by: Hydrocodone Bitart/Acetaminophen ([place] 5-325) 1 each PO Q6HR PRN PRN Reason: MODERATE Pain Last Admin: 01/30/19 13:10 Dose: 1 each Documented by: Albuterol/Ipratropium (Duoneb 0.5 Mg-3 Mg/3 Ml Soln) 3 ml INHALATION RT-QID PRN PRN Reason: Shortness Of Breath Or Wheezing Alprazolam (Xanax) 0.25 mg PO TID PRN PRN Reason: Anxiety Last Admin: 01/28/19 22:24 Dose: 0.25 mg Documented by: Aspirin (Aspirin) [address] [facility] Last Admin: 01/30/19 07:44 Dose: 81 mg Documented by: Atorvastatin Calcium (Lipitor) [address] [facility] Last Admin: 01/29/19 22:14 Dose: 10 mg Documented by: Benzocaine/Menthol (Cepacol Lozenge) 1 each MUCOUS MEM Q4HR PRN PRN Reason: Sore Throat Benzonatate (Tessalon Perles) 100 mg PO TID PRN PRN Reason: Cough Carbidopa/Levodopa (Sinemet 25-100) [address] [facility] Last Admin: 01/30/19 07:44 Dose: 1 each Documented by: Flecainide Acetate (Tambocor) [address] [facility] Last Admin: 01/30/19 07:44 Dose: 50 mg Documented by: Sodium Chloride (Saline 0.9%) 1,000 mls @ 75 mls/hr IV .[id number] [facility] Last Admin: 01/30/19 09:29 Dose: Not Given Documented by: Ceftriaxone Sodium 2 gm/ (Sodium Chloride) 50 mls @ 100 mls/hr IVPB Q24HR [facility] Last Admin: 01/30/19 07:43 Dose: 100 mls/hr Documented by: Potassium Chloride/Sodium Chloride (Ns-Kcl 20 Meq/L Iv Solution) 1,000 mls @ 125 mls/hr IV .Q8H [facility] Last Admin: 01/30/19 11:44 Dose: 125 mls/hr Documented by: Melatonin (Melatonin) 3 mg PO HS PRN PRN Reason: Insomnia Multivitamins (Theragran) [address] [facility] Last Admin: 01/30/19 07:43 Dose: 1 each Documented by: Naloxone HCl (Narcan) 0.2 mg IV Q2M PRN PRN Reason: Opioid Reversal Non-Formulary Medication (Alendronate Sodium [Fosamax]) [address] [facility] Non-Formulary Medication (Exemestane [Aromasin]) [address] [facility] Last Admin: 01/30/19 07:44 Dose: 25 mg Documented by: Ondansetron HCl (Zofran) 4 mg IVP Q8HR PRN PRN Reason: Nausea And Vomiting Last Admin: 01/29/19 05:01 Dose: 4 mg Documented by: Rivaroxaban (Xarelto) [address] [facility] Last Admin: 01/29/19 22:15 Dose: 15 mg Documented by: Home Medications Medication Instructions Recorded Confirmed Type Aspirin 81 mg PO DAILY 11/28/15 01/28/19 History Atorvastatin [Lipitor] 10 mg PO HS 11/28/15 01/28/19 History Carbidopa-Levodopa 25-100 mg 1 tab PO TID 11/28/15 01/28/19 History [Sinemet 25-100 mg] Losartan Potassium [Cozaar] 100 mg PO DAILY@1300 11/28/15 01/28/19 History Metoprolol Succinate (ER) [Toprol 50 mg PO DAILY 11/28/15 01/28/19 History XL] Multivit-Min/Iron/Folic/Lutein 1 tab PO DAILY 11/28/15 01/28/19 History [Centrum Silver Women Tablet] [place]-3 Fatty Acids/Fish Oil [Fish 1 cap PO TID 11/28/15 01/28/19 History Oil 1,000 mg Softgel] amLODIPine BESYLATE [Norvasc] 10 mg PO DAILY 11/28/15 01/28/19 History Acetaminophen [Tylenol] 500 mg PO Q4-6H PRN 01/28/19 01/28/19 History Alendronate Sodium [Fosamax] 70 mg PO WONG 01/28/19 01/28/19 History Exemestane [Aromasin] 25 mg PO DAILY 01/28/19 01/28/19 History Flecainide [Tambocor] 50 mg PO Q12HR 01/28/19 01/28/19 History Rivaroxaban [Xarelto] 15 mg PO HS 01/28/19 01/28/19 History Allergies Allergy/AdvReac Type Severity Reaction Status Date / Time No Known Allergies Allergy Verified 01/28/19 14:05 Physical Exam Vitals: Vital Signs Temp Pulse Resp BP Pulse Ox 01/30/19 13:06 97.2 F L 72 16 92/55 92 L 01/30/19 08:00 71 18 01/30/19 05:21 97.5 F L 67 17 89/47 95 01/29/19 21:15 101.4 F H 68 18 101/44 94 L Intake and Output 01/29/19 01/30/19 01/30/19 22:59 06:59 14:59 Intake Total 236 2063 Balance 236 2063 Intake: Intake, IV Titration 1824 Amount 0.9% NaCl with KCl 20 Meq 125 /l 1,000 ml @ 125 mls/hr IV .Q8H [facility] Rx#:[id number] Sodium Chloride 0.9% 1, 650 000 ml @ 75 mls/hr IV . [id number] [facility] Rx#:[id number] Sodium Chloride 0.9% 1, 999 000 ml @ 999 mls/hr IV . Q1H1M [facility] Rx#:[id number] cefTRIAXone 2 gm In 50 Sodium Chloride 0.9% 50 ml @ 100 mls/hr IVPB Q24HR [facility] Rx#:[id number] Oral 236 240 Other: Voiding Method Bedside Commode Bedside Commode # Voids 1 1 3 Pleasant 73-year-old woman who has significant obesity and seems to be modestly comfortable at this time sitting up in the chair. Nurse relates it was a 2 person assist to get her from the bed to the chair for her lunch. HEENT: Anicteric conjunctiva are pink and moist nasal mucosa grossly intact without significant lesions, there is no thrush. Denture Neck: The neck is supple without significant lymphadenopathy or thyromegaly. Lungs: Symmetrical bilateral air entry, some scattered expiratory wheeze without anita bronchial sounds all dullness or egophony Heart: Irregular with audible S1 and S2 soft S4 no distinct murmur click or a PMI was in fever thrill Abdomen: Obese with positive bowel sounds it is soft it is nontender there is no flank tenderness, there is no suprapubic tenderness there is no guarding or rebound Extremities: Extremities evidence of some generalized edema however there are no open ulcerations no significant abrasions No draining wounds. Neuro: Awake alert oriented to person place and time. There are no acute new gross focal sensory motor deficits. Results CBC & Chem 7: 01/30/19 07:04 01/30/19 07:04 Labs: Abnormal Lab Results - Last 24 Hours (Table) 01/30/19 01/30/19 Range/Units 07:04 07:04 WBC 14.8 H (3.8-10.6) k/uL RBC 3.76 L (3.80-5.40) m/uL Plt Count 121 L (150-450) k/uL BUN 39 H (7-17) mg/dL Creatinine 1.30 H (0.52-1.04) mg/dL Calcium 7.6 L (8.4-10.2) mg/dL Microbiology - Last 24 Hours (Table) 01/28/19 12:05 Urine Culture - Final Urine,Catheterized Escherichia coli 01/28/19 11:25 Blood Culture Gram Stain - Final Blood Blood Culture - Final Escherichia coli Laboratory Results WBC 14.8 k/uL (3.8-10.6) H 01/30/19 07:04 RBC 3.76 m/uL (3.80-5.40) L 01/30/19 07:04 Hgb 12.0 gm/dL (11.4-16.0) 01/30/19 07:04 Hct 34.9 % (34.0-46.0) 01/30/19 07:04 MCV 92.8 fL (80.0-100.0) 01/30/19 07:04 MCH 32.0 pg (25.0-35.0) 01/30/19 07:04 MCHC 34.5 g/dL (31.0-37.0) 01/30/19 07:04 RDW 13.0 % (11.5-15.5) 01/30/19 07:04 Plt Count 121 k/uL (150-450) L 01/30/19 07:04 Neutrophils % 89 % 01/29/19 06:01 Lymphocytes % 3 % 01/29/19 06:01 Monocytes % 4 % 01/29/19 06:01 Eosinophils % 0 % 01/29/19 06:01 Basophils % 0 % 01/29/19 06:01 Neutrophils # 12.5 k/uL (1.3-7.7) H 01/29/19 06:01 Lymphocytes # 0.4 k/uL (1.0-4.8) L 01/29/19 06:01 Monocytes # 0.6 k/uL (0-1.0) 01/29/19 06:01 Eosinophils # 0.0 k/uL (0-0.7) 01/29/19 06:01 Basophils # 0.0 k/uL (0-0.2) 01/29/19 06:01 PT 14.1 sec (9.0-12.0) H 01/28/19 11:25 INR 1.4 (<1.2) H 01/28/19 11:25 APTT 34.0 sec (22.0-30.0) H 01/28/19 11:25 Sodium 137 mmol/L (137-145) 01/30/19 07:04 Potassium 3.5 mmol/L (3.5-5.1) 01/30/19 07:04 Chloride 107 mmol/L (98-107) 01/30/19 07:04 Carbon Dioxide 22 mmol/L (22-30) 01/30/19 07:04 Anion Gap 8 mmol/L 01/30/19 07:04 BUN 39 mg/dL (7-17) H 01/30/19 07:04 Creatinine 1.30 mg/dL (0.52-1.04) H 01/30/19 07:04 Est GFR (CKD-EPI)AfAm 47 (>60 ml/min/1.73 sqM) 01/30/19 07:04 Est GFR (CKD-EPI)NonAf 40 (>60 ml/min/1.73 sqM) 01/30/19 07:04 Glucose 82 mg/dL (74-99) 01/30/19 07:04 Plasma Lactic Acid Dario 1.9 mmol/L (0.7-2.0) 01/28/19 11:25 Calcium 7.6 mg/dL (8.4-10.2) L 01/30/19 07:04 Phosphorus 4.0 mg/dL (2.5-4.5) 01/29/19 06:01 Magnesium 2.2 mg/dL (1.6-2.3) 01/30/19 07:04 Total Bilirubin 1.4 mg/dL (0.2-1.3) H 01/29/19 06:01 AST 65 U/L (14-36) H 01/29/19 06:01 ALT 18 U/L (9-52) 01/29/19 06:01 Alkaline Phosphatase 75 U/L (38-126) 01/29/19 06:01 Troponin I 0.033 ng/mL (0.000-0.034) 01/28/19 23:13 Total Protein 5.3 g/dL (6.3-8.2) L 01/29/19 06:01 Albumin 2.5 g/dL (3.5-5.0) L 01/29/19 06:01 Lipase 55 U/L (23-300) 01/28/19 11:25 Urine Color Yellow 01/28/19 12:05 Urine Appearance Cloudy (Clear) H 01/28/19 12:05 Urine pH 5.5 (5.0-8.0) 01/28/19 12:05 Ur Specific [place] 1.013 (1.001-1.035) 01/28/19 12:05 Urine Protein 1+ (Negative) H 01/28/19 12:05 Urine Glucose (UA) Negative (Negative) 01/28/19 12:05 Urine Ketones Negative (Negative) 01/28/19 12:05 Urine Blood Moderate (Negative) H 01/28/19 12:05 Urine Nitrite Negative (Negative) 01/28/19 12:05 Urine Bilirubin Negative (Negative) 01/28/19 12:05 Urine Urobilinogen 2.0 mg/dL (<2.0) 01/28/19 12:05 Ur Leukocyte Esterase Large (Negative) H 01/28/19 12:05 Urine RBC 33 /hpf (0-5) H 01/28/19 12:05 Urine WBC 158 /hpf (0-5) H 01/28/19 12:05 Urine WBC Clumps Many /hpf (None) H 01/28/19 12:05 Urine Bacteria Many /hpf (None) H 01/28/19 12:05 Urine Mucus Rare /hpf (None) H 01/28/19 12:05 Influenza Type A RNA Not Detected (Not Detectd) 01/28/19 11:53 Influenza Type B (PCR) Not Detected (Not Detectd) 01/28/19 11:53 Microbiology Entire Visit 01/28/19 12:05 Urine,Catheterized Urine Culture - Final Escherichia coli 01/28/19 11:25 Blood Blood Culture Gram Stain - Final 01/28/19 11:25 Blood Blood Culture - Final Escherichia coli 01/28/19 11:25 Blood Blood Culture - Final Assessment and Plan (1) Gram-negative sepsis with organ dysfunction Narrative/Plan: 73-year-old presents to Hospital with significant weakness and fall unable to arise from the floor. Was brought by EMS find evidence of gram-negative sepsis from the urinary system. E. coli has been isolated which is castillo susceptible. Given her many medications and her acute kidney injury sulfa medications would not be an option at this point in time. Ciprofloxacin with monitoring of her EKG will be advised when she is ready for discharge to home. We'll plan 10 days of therapy at discharge. Current Visit: Yes Status: Acute Code(s): A41.50 - GRAM-NEGATIVE SEPSIS, UNSPECIFIED; R65.20 - SEVERE SEPSIS WITHOUT SEPTIC SHOCK SNOMED Code(s): 607260745 (2) Urinary tract infection Current Visit: Yes Status: Acute Code(s): N39.0 - URINARY TRACT INFECTION, SITE NOT SPECIFIED SNOMED Code(s): 54893751 (3) Fall Current Visit: Yes Status: Acute Code(s): W19.XXXA - UNSPECIFIED FALL, INITIAL ENCOUNTER SNOMED Code(s): 8601735
[2019-01-30] MEDS: ATORVASTATIN 10 MG TAB PO SCH (22:13)
[2019-01-30] MEDS: RIVAROXABAN 15 MG TAB PO SCH (22:14)
[2019-01-31] MEDS: 0.9% NACL WITH KCL 20 MEQ/L 1,000 ML IV SCH ×4 (05:35→20:53)
[2019-01-31] MEDS: FLECAINIDE 50 MG TAB PO SCH ×2 (07:44→20:05)
[2019-01-31] MEDS: CARBIDOPA-LEVODOPA 25-100 MG 1 EACH TAB PO SCH ×3 (07:44→20:05)
[2019-01-31] MEDS: ASPIRIN 81 MG PO SCH (07:44)
[2019-01-31] MEDS: MULTIVITAMINS, THERA 1 EACH TAB PO SCH (07:44)
[2019-01-31] MEDS: EXEMESTANE 25 MG PO SCH (07:44)
[2019-01-31] MEDS: SODIUM CHLORIDE 0.9% 1,000 ML IV SCH ×2 (07:45→20:54)
[2019-01-31] MEDS ORDERED: NON FORMULARY DRUG (Alendronate Sodium [Fosamax] 70 MG) PO SCH (09:00)
[2019-01-31 09:24] LABS: Calcium 7.7 mg/dL (8.4-10.2); Potassium 3.9 mmol/L (3.5-5.1)
[2019-01-31 09:49] LABS: HGB 12.4 gm/dL (11.4-16.0); MCHC 32.7 g/dL (31.0-37.0); MCV 94.7 fL (80.0-100.0); Mean Platelet Volume 7.8; Platelet Count 146 k/uL (150-450); RBC 4.01 m/uL (3.80-5.40); RDW 13.4 % (11.5-15.5); WBC 10.2 k/uL (3.8-10.6)
--- NOTE | 2019-01-31 10:02 | P.PN ---
Subjective Progress Note Date: 01/31/19 Principal diagnosis: Patient is a 73-year-old female patient of Dr. Davis past medical history of hypertension, dyslipidemia, A. 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 On arrival to the ER she was found to be febrile with a T-max of 102.5 and hypotensive with blood pressure of 75/50. Initial laboratory analysis demonstrated acute kidney injury with a creatinine of 1.84, elevated bilirubin at 1.8, AST is 61, troponin 0.039, sodium 132, white blood cell count was normal at 10.5, and mild thrombocytopenia with platelets of 129. Urinary tract infection. Chest x-ray showed possible left basilar infiltrate or atelectasis. She was started on Rocephin and Zithromax in the ER. She received 3 L of fluid with a blood pressure improved to 100 systolic. She was subsequently admitted to the selective care unit. She was continued on IV fluids and antibiotics. Blood cultures came back with gram-negative bacilli. Repeat chest x-ray done on 01/29 did not demonstrate any acute process. She continued to have marginal blood p ressures and her blood pressure medications were not reinitiated. Patient seen and examined at bedside sitting up nurse reporting she is three- person assist to get up, patient a week, complaining of some lower back pain after reportedly hitting her back on the bed rail and chair. No acute events o vernight Objective - Vital Signs Vital signs: Vital Signs Temp 97.8 F 01/31/19 05:44 Pulse 73 01/31/19 05:44 Resp 20 01/31/19 05:44 BP 115/71 01/31/19 05:44 Pulse Ox 97 01/31/19 05:44 Intake & Output 01/30/19 01/31/19 01/31/19 18:59 06:59 18:59 Intake Total 2063 2249 Balance 2063 2249 Intake: Intake, IV Titration 1823 2249 Amount 0.9% NaCl with KCl 20 Meq 125 1250 /l 1,000 ml @ 125 mls/hr IV .Q8H [facility] Rx#:[id number] Sodium Chloride 0.9% 1, 650 000 ml @ 75 mls/hr IV . [id number] [facility] Rx#:[id number] Sodium Chloride 0.9% 1, 999 000 ml @ 999 mls/hr IV . Q1H1M [facility] Rx#:[id number] Sodium Chloride 0.9% 1, 1000 000 ml @ 999 mls/hr IV . Q1H1M [facility] Rx#:[id number] cefTRIAXone 2 gm In 50 Sodium Chloride 0.9% 50 ml @ 100 mls/hr IVPB Q24HR [facility] Rx#:[id number] Oral 240 Other: Voiding Method Bedside Commode Toilet Toilet # Voids 2 2 - Exam General: Ill-appearing, no distress, appears at stated age, obese Derm: warm, dry Head: atraumatic, normocephalic, symmetric Eyes: EOMI, no lid lag, anicteric sclera Mouth: no lip lesion, mucus membranes moist Cardiovascular: S1S2 reg, no murmur, positive posterior tibial pulse bilateral, Lungs: CTA bilateral, no rhonchi, no rales , no accessory muscle use Abdominal: soft, nontender to palpation, no guarding, no appreciable organomegaly Ext: no gross muscle atrophy, no edema, no contractures Neuro: CN II-XI grossly intact, no focal neuro deficits Psych: Alert, oriented, appropriate affect - Labs CBC & Chem 7: 01/31/19 08:44 01/31/19 08:44 Labs: Abnormal Lab Results - Last 24 Hours (Table) 01/31/19 01/31/19 Range/Units 08:44 08:44 Plt Count 146 L (150-450) k/uL Chloride 112 H (98-107) mmol/L BUN 25 H (7-17) mg/dL Creatinine 1.14 H (0.52-1.04) mg/dL Glucose 117 H (74-99) mg/dL Calcium 7.7 L (8.4-10.2) mg/dL Microbiology - Last 24 Hours (Table) 01/28/19 12:05 Urine Culture - Final Urine,Catheterized Escherichia coli 01/28/19 11:25 Blood Culture Gram Stain - Final Blood Blood Culture - Final Escherichia coli Assessment and Plan Assessment: Pyelonephritis with sepsis and E. coli bacteremia -Continue with IV fluids decreased rate secondary to shortness of breath -Continue with Rocephin with plans to switch to oral ciprofloxacin on discharge -Blood and urine cultures growing E. coli -Renal ultrasound without signs of obstruction/stone -Hold all blood pressure medications -Awaiting ID recommendations Acute kidney injury secondary to sepsis, hyponatremia, improving -IV fluids increased to NS @ 125 mL an hour with 20 mEq of potassium,1 LS NS luis quiana given -Avoid additional nephrotoxic agents -Repeat basic metabolic profile in a.m. -Cozaar on hold Elevated troponin, reflective of laboratory abnormalities. Resolved on repeat troponin -Continue aspirin -No beta blockers secondary to hypotension -Serial troponins -Consult cardiology of troponin elevates significantly Bilateral groin pain, improving -Trial of [place] Thrombocytopenia, down trending -Suspect reactive -Follow CBC Elevated AST, improving -Likely reflective of acute illness -Repeat complete metabolic profile in a.m. -Acute elevating will perform gallbladder ultrasound Breast cancer -Follows with Dr. Stacy -Continue aromatase inhibitor Dyslipidemia -Continue fish oil tablets History of tachybrady syndrome and atrial fibrillation status post permanent pacemaker -Telemetry -Xarelto Parkinson's disease - Continue sinemet DVT prophylaxis: SCDs Discussed with: Patient, nursing, family Anticipated discharge date: 1-[address]: SNF A total of 35 minutes was spent on the care of this complex patient more than 50% of the time was spent in counseling and care coordination.
[2019-01-31 11:07] LABS: Band Neutrophils % 1 %; Lymphocytes # (M) 0.71 k/uL (1.0-4.8); Metamyelocytes % 1 %; Monocytes # (M) 0.92 k/uL (0-1.0); Myelocytes % 1 %; Neutrophils % (M) 81 %; Nucleated Red Blood Cells 0 /100 WBC (0-0); Total Cells Counted 200
[2019-01-31 11:30] VITALS: RESP 18
[2019-01-31] MEDS: HYDROcodone/APAP 5-325MG 1 EACH TAB PO PRN ×2 (11:41→20:05)
[2019-01-31] MEDS: ATORVASTATIN 10 MG TAB PO SCH (20:05)
[2019-01-31] MEDS: RIVAROXABAN 15 MG TAB PO SCH (20:05)
[2019-02-01] MEDS: 0.9% NACL WITH KCL 20 MEQ/L 1,000 ML IV SCH (04:43)
[2019-02-01 04:56] VITALS: BP 109/60; PULSE 77; TEMP 97.8
[2019-02-01] MEDS: MULTIVITAMINS, THERA 1 EACH TAB PO SCH (09:01)
[2019-02-01] MEDS: ASPIRIN 81 MG PO SCH (09:01)
[2019-02-01] MEDS: FLECAINIDE 50 MG TAB PO SCH (09:01)
[2019-02-01] MEDS: CARBIDOPA-LEVODOPA 25-100 MG 1 EACH TAB PO SCH (09:01)
[2019-02-01] MEDS: EXEMESTANE 25 MG PO SCH (09:02)
--- NOTE | 2019-02-01 09:30 | P.DS ---
Providers Date of admission: 01/28/19 13:55 Expected date of discharge: 02/01/19 Attending physician: Capri Augustin DO Consults: 01/29/19 15:53 Consult Physician Routine Consulting Provider: Derrek Valle Consult Reason/Comments: bacteremia Do you want consulting provider notified?: Yes Primary care physician: Lexi Davis Hospital Course: Discharge diagnosis Sepsis E. coli bacteremia E. coli pyelonephritis Acute kidney injury Elevated troponin Hyponatremia Dyslipidemia Thrombocytopenia chronic hospital course Patient is a 73-year-old female patient of Dr. Davis past medical history of hypertension, dyslipidemia, A. 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 On arrival to the ER she was found to be febrile with a T-max of 102.5 and hypotensive with blood pressure of 75/50 and admitted with sepsis. Initial laboratory analysis demonstrated acute kidney injury with a creatinine of 1.84, elevated bilirubin at 1.8, AST is 61, troponin 0.039, sodium 132, white blood cell count was normal at 10.5, and mild thrombocytopenia with platelets of 129. Urinary tract infection. Chest x-ray showed possible left basilar infiltrate or atelectasis. She was started on Rocephin and Zithromax in the ER. She received 3 L of fluid with a blood pressure improved to 100 systolic. She was subsequently admitted to the selective care unit. She was continued on IV fluids and antibiotics. Urine and Blood cultures came back wit E. coli with noted castillo sensitivities. Repeat chest x-ray done on 01/29 did not demonstrate any acute process. She continued to have marginal blood pressures and her IV bolus was repeated and she was continued on IV fluids. Her creatinine trended down and her hyponatremia normalized. Dr. Valle with infectious diseases was consulted and recommended transition to oral antibiotics with ciprofloxacin. With treatment the patient's sepsis resolved and she was afebrile with a normalized white count. She was subsequently discharged tomorrow in stable condition. The patient's Norvasc and losartan were discontinued on discharge. This discharge process took approximately 35 minutes. Focused exam Cardiovascular: Regular rate and rhythm no murmurs rubs or gallops Patient Condition at Discharge: Good Plan - Discharge Summary Discharge Rx Participant: No New Discharge Prescriptions: New Ciprofloxacin HCl [Cipro] 500 mg PO BID 8 Days #16 tab Continue Aspirin 81 mg PO DAILY [place]-3 Fatty Acids/Fish Oil [Fish Oil 1,000 mg Softgel] 1 cap PO TID Multivit-Min/Iron/Folic/Lutein [Centrum Silver Women Tablet] 1 tab PO DAILY Atorvastatin [Lipitor] 10 mg PO HS Metoprolol Succinate (ER) [Toprol XL] 50 mg PO DAILY Carbidopa-Levodopa 25-100 mg [Sinemet 25-100 mg] 1 tab PO TID Acetaminophen [Tylenol] 500 mg PO Q4-6H PRN PRN Reason: Pain Flecainide [Tambocor] 50 mg PO Q12HR Exemestane [Aromasin] 25 mg PO DAILY Alendronate Sodium [Fosamax] 70 mg PO WONG Rivaroxaban [Xarelto] 15 mg PO HS Discontinued Losartan Potassium [Cozaar] 100 mg PO DAILY@1300 amLODIPine BESYLATE [Norvasc] 10 mg PO DAILY Discharge Medication List Aspirin 81 mg PO DAILY 11/28/15 [History] Atorvastatin [Lipitor] 10 mg PO HS 11/28/15 [History] Carbidopa-Levodopa 25-100 mg [Sinemet 25-100 mg] 1 tab PO TID 11/28/15 [History] Metoprolol Succinate (ER) [Toprol XL] 50 mg PO DAILY 11/28/15 [History] Multivit-Min/Iron/Folic/Lutein [Centrum Silver Women Tablet] 1 tab PO DAILY 11/28/15 [History] [place]-3 Fatty Acids/Fish Oil [Fish Oil 1,000 mg Softgel] 1 cap PO TID 11/28/15 [History] Acetaminophen [Tylenol] 500 mg PO Q4-6H PRN 01/28/19 [History] Alendronate Sodium [Fosamax] 70 mg PO WONG 01/28/19 [History] Exemestane [Aromasin] 25 mg PO DAILY 01/28/19 [History] Flecainide [Tambocor] 50 mg PO Q12HR 01/28/19 [History] Rivaroxaban [Xarelto] 15 mg PO HS 01/28/19 [History] Ciprofloxacin HCl [Cipro] 500 mg PO BID 8 Days #16 tab 02/01/19 [Rx] Follow up Appointment(s)/Referral(s): Lexi Davis MD [Primary Care Provider] - 12/04/19 1:00 pm Patient Instructions/Handouts: Ciprofloxacin (By mouth) Activity/Diet/Wound Care/Special Instructions: home meds in omnicel
== END 2019-02-01 15:26 | DRG 872 ==
LOC: EC 10:53 → 3SCARD 13:55 → 3NMEDONC 01-29 13:39
PROVIDERS: ADMIT Internal Medicine; ATTEND Internal Medicine
DX: A41.51 Sepsis due to Escherichia coli [E. coli] (principal); N17.9 Acute kidney failure, unspecified; E87.1 Hypo-osmolality and hyponatremia; N12 Tubulo-interstitial nephritis, not specified as acute or chronic; Z68.41 Body mass index [BMI] 40.0-44.9, adult; M19.90 Unspecified osteoarthritis, unspecified site; Z96.652 Presence of left artificial knee joint; F41.9 Anxiety disorder, unspecified; E78.5 Hyperlipidemia, unspecified; I49.5 Sick sinus syndrome; G20 Parkinson's disease; D69.6 Thrombocytopenia, unspecified; I65.21 Occlusion and stenosis of right carotid artery; I10 Essential (primary) hypertension; I48.91 Unspecified atrial fibrillation; R10.32 Left lower quadrant pain; R10.31 Right lower quadrant pain; R74.0 Nonspecific elevation of levels of transaminase and lactic acid dehydrogenase [LDH]; E66.9 Obesity, unspecified; R79.89 Other specified abnormal findings of blood chemistry; S30.0XXA Contusion of lower back and pelvis, initial encounter; C50.911 Malignant neoplasm of unspecified site of right female breast; R65.20 Severe sepsis without septic shock; W19.XXXA Unspecified fall, initial encounter; Q35.9 Cleft palate, unspecified; Z79.82 Long term (current) use of aspirin; Z79.899 Other long term (current) drug therapy; Z87.442 Personal history of urinary calculi; Z79.83 Long term (current) use of bisphosphonates; Z79.811 Long term (current) use of aromatase inhibitors; Z79.01 Long term (current) use of anticoagulants; Z98.890 Other specified postprocedural states; Z87.891 Personal history of nicotine dependence; Z82.49 Family history of ischemic heart disease and other diseases of the circulatory system; Z80.3 Family history of malignant neoplasm of breast; Z95.0 Presence of cardiac pacemaker; Z91.81 History of falling; Z92.3 Personal history of irradiation
CPT/HCPCS: 36415; 51701; 71045; 71046; 72170; 76770; 80048; 80053; 81001; 83605; 83690; 83735; 84100; 84484; 85025; 85027; 85610; 85730; 87040; 87077; 87086; 87186; 87502; 93005; 94760; 96361; 96365; 96367; 96375; 99285

== ENCOUNTER → 2019-04-01 | Outpatient (CLI) | payer MEDICARE, OTHER ==
--- NOTE | 2019-04-01 15:33 | CT ---
EXAMINATION TYPE: CT chest wo con DATE OF EXAM: 04/01/2019 COMPARISON: Chest x-ray January 28, 2019 HISTORY: SOB for [address] DLP: 452.4 mGycm. Automated Exposure Control for Dose Reduction was Utilized. TECHNIQUE: CT scan of the thorax is performed without IV contrast. FINDINGS: LUNGS: There is some peripheral reticulation and/or fibrotic changes throughout both lungs involving upper and lower lungs. Some respiratory motion artifact degradation is seen making evaluation subopti mal particularly for subcentimeter nodules. No pleural effusion or pneumothorax is evident. No suspic ious masses are seen. No suspicious focal consolidation is noted. MEDIASTINUM: Lack of IV contrast is noted to limit evaluation for mediastinal and especially hilar ad enopathy. There are no definitive greater than 1 cm hilar or mediastinal lymph nodes. Cardiomegaly is present with multi lead pacemaker. There is moderate to severe left atrial dilatation. Coronary anil ry calcification is present which is noted marked underlying coronary artery disease. OTHER: There is large hiatal hernia or intrathoracic stomach with abnormal twisting. Esophagus shows moderate to severe wall thickening subcarinal level just for this. Correlate clinically. Symmetric he terogeneously dense fibroglandular tissue throughout both breasts. Inverted nipples are suspected. IMPRESSION: Chronic peripheral fibrotic changes throughout both lungs without suspicious acute pulmon cecilia process. Other findings as noted above.
== END | disposition home or self-care (01) ==
LOC: RADCTMAIN 14:42
PROVIDERS: ATTEND Family Medicine
DX: J84.10 Pulmonary fibrosis, unspecified (principal); I51.7 Cardiomegaly; I25.10 Atherosclerotic heart disease of native coronary artery without angina pectoris; R59.0 Localized enlarged lymph nodes
CPT/HCPCS: 71250

== ENCOUNTER → 2019-04-29 | Outpatient (CLI) | payer MEDICARE, OTHER ==
[2019-04-29 17:02] LABS: HGB 13.4 gm/dL (11.4-16.0); MCH 28.4 pg (25.0-35.0); Mean Platelet Volume 8.4; Platelet Count 228 k/uL (150-450); RBC 4.72 m/uL (3.80-5.40); RDW 13.3 % (11.5-15.5); WBC 6.5 k/uL (3.8-10.6)
[2019-04-29 17:08] LABS: Appearance,Urine Cloudy (Clear); Bacteria,Urine Occasional /hpf; Bilirubin,Urine Negative (Negative); Blood,Urine Trace (Negative); Color,Urine Yellow; Glucose,Urine (UA) Negative (Negative); Ketones,Urine Negative (Negative); Leukocyte Esterase,Urine Large (Negative); Mucus,Urine Rare /hpf; Nitrite,Urine Negative (Negative); PH, Urine 5.5 (5.0-8.0); Protein,Urine Negative (Negative); RBC,Urine 9 /hpf (0-5); Specific Gravity,Urine 1.016 (1.001-1.035); Squamous Epithelial Cell,Urine 1 /hpf (0-4); Urobilinogen,Urine <2.0 mg/dL (<2.0); WBC,Urine >182 /hpf (0-5)
[2019-04-29 17:12] LABS: ALT <6 U/L (4-34); AST 24 U/L (14-36); African American GFR (CKD) 63 (>60 ml/min/1.73 sqM); Alkaline Phosphatase 58 U/L (38-126); Anion Gap 7 mmol/L; Blood Urea Nitrogen 29 mg/dL (7-17); Calcium 9.7 mg/dL (8.4-10.2); Carbon Dioxide 24 mmol/L (22-30); Chloride 107 mmol/L (98-107); Glucose 85 mg/dL (74-99); Non-African American GFR(CKD) 54 (>60 ml/min/1.73 sqM); Sodium 138 mmol/L (137-145); Total Bilirubin 0.3 mg/dL (0.2-1.3); Total Protein 7.3 g/dL (6.3-8.2)
[2019-04-29 17:14] LABS: INR 1.1 (<1.2); Partial Thromboplastin Time 28.2 sec (22.0-30.0); Prothrombin Time 11.6 sec (9.0-12.0)
[2019-04-29 17:21] LABS: MCV 88.9 fL (80.0-100.0)
--- NOTE | 2019-04-30 08:28 | XR ---
EXAMINATION TYPE: XR chest 2V DATE OF EXAM: 04/29/2019 COMPARISON: Prior chest x-ray 01/29/2019, CT 04/01/2019 HISTORY: Presurgical, shortness of breath TECHNIQUE: Frontal and lateral views of the chest are obtained. FINDINGS: Retrocardiac density with central lucency consistent with hiatal hernia. No evident pneumo thorax or pleural effusion. Pacemaker is stable with leads in the right atrium and ventricle. Heart i s enlarged. Thoracic and lumbar degenerative disc disease is present. Interstitial changes are mild. IMPRESSION: Hiatal hernia with partial intrathoracic stomach. Cardiomegaly persists.
== END | disposition home or self-care (01) ==
LOC: RAD 16:13
PROVIDERS: ATTEND Family Medicine
DX: I51.7 Cardiomegaly (principal); K44.9 Diaphragmatic hernia without obstruction or gangrene; Z01.812 Encounter for preprocedural laboratory examination; N39.0 Urinary tract infection, site not specified; I48.91 Unspecified atrial fibrillation; I10 Essential (primary) hypertension; Z51.81 Encounter for therapeutic drug level monitoring
CPT/HCPCS: 71046; 80053; 81001; 85027; 85610; 85730; 87086; 88108

== ENCOUNTER 2022-12-30 11:29 | Emergency (ER) | payer MEDICARE, OTHER ==
--- NOTE | 2022-12-30 12:02 | ED ---
Fall HPI - General Chief Complaint: Fall Stated Complaint: FALL Time Seen by Provider: 12/30/22 11:47 Source: EMS Mode of arrival: EMS - History of Present Illness Initial Comments: Patient is a 77-year-old female who is on several toe presents emergency room for complaints of pain and bleeding after a fall. Patient was going down a ramp and her cane did not Koehl causing her to trip and fall forward. She landed on her right knee and hit the right frontal scalp on the ground. She has a small laceration over the right eyebrow with periorbital swelling and ecchymosis. She denies any loss consciousness. Denies any nausea vomiting or vision changes. Patient has pain to the right knee and bruising to the left hand. - Related Data Home Medications Medication Instructions Recorded Confirmed Aspirin 81 mg PO DAILY 11/28/15 12/30/22 Atorvastatin [Lipitor] 10 mg PO HS 11/28/15 12/30/22 Carbidopa-Levodopa 25-100 mg 1 tab PO TID 11/28/15 12/30/22 [Sinemet 25-100 mg] Metoprolol Succinate (ER) [Toprol 50 mg PO DAILY 11/28/15 12/30/22 XL] Multivit-Min/Iron/Folic/Lutein 1 tab PO DAILY 11/28/15 12/30/22 [Centrum Silver Women Tablet] [place]-3 Fatty Acids/Fish Oil [Fish 1 cap PO TID 11/28/15 12/30/22 Oil 1,000 mg Softgel] Alendronate Sodium [Fosamax] 70 mg PO WONG 01/28/19 12/30/22 Exemestane [Aromasin] 25 mg PO DAILY 01/28/19 12/30/22 Flecainide [Tambocor] 50 mg PO Q12HR 01/28/19 12/30/22 Rivaroxaban [Xarelto] 15 mg PO HS 01/28/19 12/30/22 Acetaminophen [Tylenol Arthritis] 650 mg PO Q6H PRN 12/30/22 12/30/22 Losartan Potassium [Cozaar] 100 mg PO DAILY@1300 12/30/22 12/30/22 amLODIPine [Norvasc] 10 mg PO DAILY 12/30/22 12/30/22 Previous Rx's Medication Instructions Recorded Amoxic-Pot Clav 875-125Mg 1 tab PO Q12HR #20 tab 12/30/22 [Augmentin 875-125] HYDROcodone/APAP 5-325MG [[place] 5] 1 each PO Q6HR PRN #12 tab 12/30/22 Allergies Allergy/AdvReac Type Severity Reaction Status Date / Time No Known Allergies Allergy Verified 12/30/22 15:02 Review of Systems ROS Statement: Those systems with pertinent positive or pertinent negative responses have been documented in the HPI. ROS Other: All systems not noted in ROS Statement are negative. Past Medical History Past Medical History: Osteoarthritis (OA) Additional Past Medical History / Comment(s): SEE DR LOU'S H&P,VINAYAK HERRON'S,100% OCCLUDED RIGHT CAROTED ARTERY,HX KIDNEY STONES, History of Any Multi-Drug Resistant Organisms: None Reported Past Surgical History: Joint Replacement, Orthopedic Surgery Additional Past Surgical History / Comment(s): RIGHT ANKLE REPAIRED,LEFT KNEE REPLACED Past Anesthesia/Blood Transfusion Reactions: No Reported Reaction Type of Cardiac Device: Permanent Pacemaker Device Placement Date:: 2015 Past Psychological History: Anxiety Smoking Status: Former smoker Past Alcohol Use History: None Reported Past Drug Use History: None Reported - Past Family History Mother Family Medical History: No Reported History Father Family Medical History: AICD/Pacemaker Sister(s) Family Medical History: Cancer Additional Family Medical History / Comment(s): BREAST General Exam Limitations: no limitations General appearance: alert, in no apparent distress Head exam: Present: other (ecchymosis and swelling to right orbita with a superficial abrasion over right eyebrown. bruising over nasal bridge. no septal hematoma. pupils are equal and reactive. neg reyes sign or raccoon eyes. A&Ox3) Eye exam: Present: normal appearance, PERRL, other (no blood in anterior chamber, EOMI) ENT exam: Present: normal exam Neck exam: Present: normal inspection, full ROM, other (no pain midline, c collar in place until cleared from CT) Cardiovascular Exam: Present: regular rate, normal rhythm GI/Abdominal exam: Present: soft Extremities exam: Present: tenderness (Pain, swelling and ecchymosis over the right anterior knee, limited range of motion due to pain but is able to flex the knee slightly. Compartments are soft without any sign of compartment syndrome or septic joint. No obvious deformity. ), joint swelling, other (There is ecchymosis over the left hand more specifically over the left first CMC with any significant swelling or deformity. Normal range of motion of the upper trapezius bilaterally. No pain or decreased range of motion over the bilateral hips. No shortening of the lower extremities...) Back exam: Present: full ROM Neurological exam: Present: alert, oriented X3, CN II-XII intact Psychiatric exam: Present: normal affect, normal mood Skin exam: Present: warm Course Vital Signs 12/30/22 11:34 Temperature 97.8 F Pulse Rate 62 Respiratory 18 Rate Blood Pressure 135/68 O2 Sat by Pulse 97 Oximetry - Reevaluation(s) Reevaluation #1: the pat ient was feeling better after norco and acetaminophen. she is alert and oriented. I discussed imaging results with patient which show a orbital blowout fracture. Discussed sinus per: Further management at home including ice, sinus percussion pain medicine and antibiotics. Discussed following up with ENT and PCP. Patient has children who live nearby and will continuously check on her at home and will call her. She understands she is to return to the emergency room for any abnormal behavior, abnormal speech, lethargy, vomiting, vision changes, worsening pain or new concerning symptoms. I did speak with attending ED physician Dr. Lopez regarding patient's injury and further management. Medical Decision Making - Medical Decision Making Was pt. sent in by a medical professional or institution (, PA, [facility], urgent care, hospital, or longterm...) When possible be specific @ -[No] Did you speak to anyone other than the patient for history (EMS, parent, family, police, friend...)? What history was obtained from this source @ -[No] Did you review nursing and triage notes (agree or disagree)? Why? @ -[I reviewed and agree with nursing and triage notes] Were old charts reviewed (outside hosp., previous admission, EMS record, old EKG, old radiological studies, urgent care reports/EKG's, longterm records)? Report findings @ -no old charts were not reviewed Differential Diagnosis (chest pain, altered mental status, abdominal pain women, abdominal pain men, vaginal bleeding, weakness, fever, dyspnea, syncope, headache, dizziness, GI bleed, back pain, seizure, CVA, palpatations, mental health, musculoskeletal)? @ -Head injury without loss consciousness. Orbital fracture, orbital fracture, PA orbital contusion, nasal bone fractures, EKG interpreted by me (3pts min.). @ -[As above] X-rays interpreted by me (1pt min.). @ - X-ray of the right knee are negative for any fracture deformity or other acute changes. Please this in place. Ostial arthritis seen in the left hand without any fractures or deformities seen. CT interpreted by me (1pt min.). @ -Degenerative changes of the C-spine however there is no obvious deformity, mass or fracture seen. There is a right orbital fracture and nasal bone fracture. radiology report pending for confirmation of acute changes U/S interpreted by me (1pt. min.). @ -[None done] What testing was considered but not performed or refused? (CT, X-rays, U/S, labs)? Why? @ -[None] What meds were considered but not given or refused? Why? @ -[None] Did you discuss the management of the patient with other professionals (professionals i.e. , PA, [facility], lab, RT, psych nurse, social work professor, account service associate, teacher, department of natural resources officer, pillowcase folder)? Give summary @ -Discussed patient's symptoms are And management with attending ED physician Dr. Lopez today. Was smoking cessation discussed for >3mins.? @ -[No] Was critical care preformed (if so, how long)? @ -[No] Were there social determinants of health that impacted care today? How? (Homelessness, low income, unemployed, alcoholism, drug addiction, transportation, low edu. Level, literacy, decrease access to med. care, intermediate, rehab)? @ -[No] Was there de-escalation of care discussed even if they declined (Discuss DNR or withdrawal of care, Hospice)? DNR status @ -[No] What co-morbidities impacted this encounter? (DM, HTN, Smoking, COPD, CAD, Cancer, CVA, ARF, Chemo, Hep., AIDS, mental health diagnosis, sleep apnea, morbid obesity)? @ -anticoagulated, age Was patient admitted / discharged? Hospital course, mention meds given and route, prescriptions, significant lab abnormalities, going to OR and other pertinent info. @ -Patient is alert and oriented in the emergency room. She is stable to follow up as an outpatient with ENT and PCP. She has family close by he will continue to check on her once or twice a day. She understands signs return to the emergency room. Undiagnosed new problem with uncertain prognosis? @ -[No] Drug Therapy requiring intensive monitoring for toxicity (Heparin, Nitro, Insulin, Cardizem)? @ -[No] Were any procedures done? @ -[No] Diagnosis/symptom? @ -Fall, head injury without loss consciousness, right orbital fracture, right nasal bone fracture, right knee contusion, left hand contusion Acute, or Chronic, or Acute on Chronic? @ -[AcuteUncomplicated (without systemic symptoms) or Complicated (systemic symptoms)? @ -[default] Side effects of treatment? @ -[No] Exacerbation, Progression, or Severe Exacerbation? @ -[No] Poses a threat to life or bodily function? How? (Chest pain, USA, ND, pneumonia, PE, COPD, DKA, ARF, appy, cholecystitis, CVA, Diverticulitis, Homicidal, Suicidal, threat to staff... and all critical care pts) @ -[No] - Radiology Data Radiology results: report reviewed, image reviewed Disposition Clinical Impression: Orbital fracture, Nasal bone fracture, Blow out fracture of orbit, Knee contusion Disposition: HOME SELF-CARE Condition: Fair Instructions (If sedation given, give patient instructions): Nasal Fracture (ED), Facial Fracture (ED), Head Injury (ED), Knee Pain (ED), Fall Prevention (ED) Additional Instructions: Sleep with your head up at a 45 angle. Avoid using straws. Try to avoid blowing her nose for at least a week as this is possible. Follow-up with ENT specialist her PCP for follow-up evaluation and further medical management. Did not drive while taking pain medication. Have your family visit U daily and call to check on you to make sure you are alert and oriented. Return to the emergency room for any abnormal behavior, abnormal speech, lethargy, vomiting, vision changes or worsening pain or new concerning symptoms. Prescriptions: Amoxic-Pot Clav 875-125Mg [Augmentin 875-125] 1 tab PO Q12HR #20 tab HYDROcodone/APAP 5-325MG [[place] 5] 1 each PO Q6HR PRN #12 tab PRN Reason: Pain Is patient prescribed a controlled substance at d/c from ED?: Yes When asked, does pt state using other controlled substances?: No If prescribed controlled substance>3 days was MAPS reviewed?: Prescribed <3 Days If opioid is for acute pain is fill amount 7 days or less?: No Referrals: None,Stated [REFERRING] - 1-2 days Time of Disposition: 15:40
[2022-12-30] MEDS ORDERED: HYDROcodone/APAP 10-325MG 1 EACH TAB PO ONE (12:40)
[2022-12-30] MEDS ORDERED: ACETAMINOPHEN TAB 325 MG TAB PO STA (12:41)
--- NOTE | 2022-12-30 13:14 | CT ---
EXAMINATION TYPE: CT brain cspine wo con CT DLP: 1141.5 mGycm, Automated exposure control for dose reduction was used. DATE OF EXAM: 12/30/2022 1:04 PM COMPARISON: None.. CLINICAL INDICATION:Female, 77 years old with history of fall, head injury with anticoagulation; Fall , head injury with anticoagulation. TECHNIQUE: Brain: Multiple axial CT images of the brain were obtained without IV contrast. Cspine: Axial CT images from the skull base to the inferior aspect of T2 we obtained without intraven ous contrast. Coronal and sagittal reformatted images were also reviewed. FINDINGS: Brain: Extra-axial spaces: No abnormal extra-axial fluid collections. Ventricular system: Within normal limits Cerebral parenchyma: No acute intraparenchymal hemorrhage or mass effect. The sanderson-white junction is well differentiated. Scattered hypoattenuating areas are seen within the white matter. Cerebellum: Unremarkable. Mass effect: No evidence of midline shift. Intracranial vasculature: Atherosclerotic calcifications of the intracranial vessels. Soft tissues: Right periorbital soft tissue contusion. Calvarium/osseous structures: No depressed skull fracture. Benign hyperostosis frontalis noted. Acute inferior blowout fracture of the inferior right orbital wall. Paranasal sinuses and mastoid air cells: Opacification of the left mastoid air cells. Right mastoid a ir cells are clear. Complete opacification of the right maxillary sinus. Mild mucosal thickening of t he right ethmoid sinus. Minimal mucosal thickening of the left adnexa sinus. Acute fracture the right nasal bone. Visualized orbits: Orbital contents are intact. Cervical spine: Fracture: None. Osseous structures: Multilevel degenerative disc disease changes with endplate spurring and osteophyt osis. Multilevel facet arthropathy. Vertebral alignment: Grade 1 anterolisthesis of C4 on C5 and C5 on C6, likely degenerative. Spinal canal/Neural Foramina: No evidence of significant spinal canal narrowing. Facet joint uncovert ebral joint arthropathy scattered throughout the cervical spine with varying degrees of neural forami nal stenosis. Neck soft tissues: Prevertebral soft tissues are within normal limits. Other: The airway is patent. The lung apices are clear. Partial visualization of cardiac pacemaking l dorian. IMPRESSION: 1. No acute intracranial process. 2. Acute right inferior orbital blowout fracture with complete opacification of the right maxillary sinus. Surrounding right periorbital contusion. 3. Acute right nasal bone fracture. 4. Nonspecific white matter changes, likely secondary to chronic small vessel ischemic disease. 5. No evidence of cervical spine fracture. 6. Mild multilevel degenerative disc disease. 7. Likely degenerative grade 1 anterolisthesis of C4 on C5 and C5 on C6.
--- NOTE | 2022-12-30 13:16 | XR ---
EXAMINATION TYPE: XR hand complete LT DATE OF EXAM: 12/30/2022 COMPARISON: NONE HISTORY: Pain TECHNIQUE: Three views are submitted. FINDINGS: There is diffuse PIP, and DIP joint arthropathy with findings suspicious for erosive osteoarthritis f ifth digit. Severe first carpometacarpal joint arthropathy. Chondrocalcinosis involving the radiocarp al joint. IMPRESSION: 1. Severe osteoarthritis with erosive changes involving the PIP joint fifth digit. 2. Severe first digit carpal metacarpal osteoarthritis.
--- NOTE | 2022-12-30 13:17 | XR ---
EXAMINATION TYPE: XR knee complete RT DATE OF EXAM: 12/30/2022 COMPARISON: NONE HISTORY: Pain TECHNIQUE: Three views are submitted. FINDINGS: Postsurgical changes compatible with knee replacement surgery. Diffuse osteopenia. No acute fracture. Vascular calcification noted. There is extensive soft tissue edema in the prepatellar space. IMPRESSION: 1. No acute fracture or dislocation.
[2022-12-30 16:19] VITALS: BP 131/64; PULSE 76; RESP 16; TEMP 98.9
== END 2022-12-30 16:46 | disposition home or self-care (01) ==
LOC: EC 11:29
DX: S02.2XXA Fracture of nasal bones, initial encounter for closed fracture (principal); S02.31XA Fracture of orbital floor, right side, initial encounter for closed fracture; S80.01XA Contusion of right knee, initial encounter; S60.222A Contusion of left hand, initial encounter; G20.A1 Parkinson's disease without dyskinesia, without mention of fluctuations; M19.90 Unspecified osteoarthritis, unspecified site; Z79.82 Long term (current) use of aspirin; Z79.899 Other long term (current) drug therapy; Z87.891 Personal history of nicotine dependence; W01.0XXA Fall on same level from slipping, tripping and stumbling without subsequent striking against object, initial encounter
CPT/HCPCS: 70450; 72125; 99285

== ENCOUNTER → 2023-05-30 | Outpatient (CLI) | payer SELFPAY ==
[2023-05-30 16:07] LABS: Basophils # (A) 0.07 X 10*3/uL (0.00-0.10); Basophils % (A) 0.9 %; Eosinophils # (A) 0.62 X 10*3/uL (0.04-0.35); Eosinophils % (A) 8.4 %; HCT 48.6 % (37.2-46.3); HGB 15.4 g/dL (12.0-15.0); Lymphocytes # (A) 1.21 X 10*3/uL (0.90-5.00); Lymphocytes % (A) 16.4 %; MCH 28.9 pg (27.0-32.0); MCHC 31.7 g/dL (32.0-37.0); MCV 91.2 FL (80.0-97.0); Mean Platelet Volume 11.1 FL (9.5-12.2); Monocytes # (A) 0.69 X 10*3/uL (0.20-1.00); Monocytes % (A) 9.3 %; NRBC Per 100 WBC 0 X 10*3/uL (0.00-0.01); Neutrophils # (A) 4.78 X 10*3/uL (1.80-7.70); Neutrophils % (A) 64.6 %; Platelet Count 246 X 10*3/uL (140-440); RBC 5.33 X 10*6/uL (4.10-5.20); RDW 13.8 % (11.5-14.5)
[2023-05-30 16:12] LABS: Blood Urea Nitrogen 23.1 mg/dL (9.0-27.0); Carbon Dioxide 21.7 mmol/L (21.6-31.8); Chloride 104 mmol/L (96-109); Glucose 92 mg/dL (70-110); LDL Cholesterol,Calculated 76.1 mg/dL (0.0-131.0); Potassium 4.1 mmol/L (3.5-5.5); Sodium 138 mmol/L (135-145)
== END | disposition home or self-care (01) ==
LOC: LABWHC1 09:48
PROVIDERS: ATTEND Family Medicine
DX: C50.911 Malignant neoplasm of unspecified site of right female breast (principal); I10 Essential (primary) hypertension; E78.5 Hyperlipidemia, unspecified
CPT/HCPCS: 36415; 80048; 80061; 85025

== ENCOUNTER → 2023-07-04 | Outpatient (CLI) | payer MEDICARE ==
--- NOTE | 2023-07-07 11:54 | BD ---
EXAMINATION TYPE: Axial Bone Density DATE OF EXAM: 07/04/2023 CLINICAL HISTORY: 77 years old Female. ICD-10 CODE: M81.0 AGE-RELATED OSTEOPOROSIS W/O CURRENT PATHO LO Height: 59.5 in Weight: 184 lbs FRAX RISK QUESTIONS: History of Fracture in Adulthood: rt ankle fx approximately age 33 Secondary Osteoporosis: 3. Menopause before 45: approximately mid 40's EXAM MEASUREMENTS: Bone mineral densitometry was performed using the [employer] System. Bone mineral density as measured about the Lumbar spine is: ----- L1-L4(G/cm2): 1.481 T Score Values are as follows: ----- L1: -0.3 ----- L2: 1.9 ----- L3: 4.4 ----- L4: 3.1 ----- L1-L4: 2.5 Z Score Values are as follows: ----- L1: 0.9 ----- L2: 3.1 ----- L3: 5.6 ----- L4: 4.3 ----- L1-L4: 3.7 Bone mineral density baseline Bone mineral density about the R hip (g/cm2): 0.779 Bone mineral density about the L hip (g/cm2): 0.864 T Score values are as follows: -----R Neck: -1.7 -----L Neck: -1.2 -----R Total: -1.8 -----L Total: -1.1 Z Score values are as follows: -----R Neck: 0.0 -----L Neck: 0.5 -----R Total: -0.3 -----L Total: 0.4 Bone mineral density baseline FRAX%s: The graph provided illustrates a 18.7% chance for a major osteoporotic fx and a 4.1% chance f or the hips probability for fx in 10 years time. IMPRESSION: Osteopenia (T Score between -2.5 and -1). There is slightly increased risk of fracture and the patient may be considered for treatment. Re-Screen 2-5 years. NOTE: T-SCORE=SD OF THE YOUNG ADULT MEAN.
== END | disposition home or self-care (01) ==
LOC: RADBDWWP 10:54
PROVIDERS: ATTEND Family Medicine
DX: M85.89 Other specified disorders of bone density and structure, multiple sites (principal); M81.0 Age-related osteoporosis without current pathological fracture; Z78.0 Asymptomatic menopausal state
CPT/HCPCS: 77080

== ENCOUNTER 2023-12-28 08:04 | Emergency (ER) | payer MEDICARE, OTHER ==
[2023-12-28 08:13] VITALS: PULSE 60
--- NOTE | 2023-12-28 08:27 | ED ---
General Adult HPI - General Chief complaint: Fall Stated complaint: Fall/L Side Pain Time Seen by Provider: 12/28/23 08:15 Source: patient, RN notes reviewed Mode of arrival: wheelchair Limitations: no limitations - History of Present Illness Initial comments: Patient is an 78-year-old female present to the emergency department with concerns for fall. Patient was transferring from her bed to the commode when she slipped. Patient landed on her left arm. Patient has some discomfort of left forearm and left knee. Patient is able to move both. Patient denies any head injury or loss of consciousness. No neck or back pain. No chest pain or dyspnea. No abdominal pain. No laceration. - Related Data Home Medications Medication Instructions Recorded Confirmed Aspirin 81 mg PO DAILY@79911/28/15 12/28/23 Atorvastatin [Lipitor] 10 mg PO HS@199911/28/15 12/28/23 Carbidopa-Levodopa 25-100 mg 1 tab PO TID@,,11/28/15 12/28/23 [Sinemet 25-100 mg] Metoprolol Succinate (ER) [Toprol 50 mg PO DAILY@79911/28/15 12/28/23 XL] Multivit-Min/Iron/Folic/Lutein 1 tab PO DAILY@79911/28/15 12/28/23 [Centrum Silver Women Tablet] Conyers-3 Fatty Acids/Fish Oil [Fish 1 cap PO TID@,,11/28/15 12/28/23 Oil 1,000 mg Softgel] Alendronate Sodium [Fosamax] 70 mg PO WONG@79901/28/19 12/28/23 Exemestane [Aromasin] 25 mg PO DAILY@79901/28/19 12/28/23 Flecainide [Tambocor] 50 mg PO BID@799,199901/28/19 12/28/23 Rivaroxaban [Xarelto] 15 mg PO HS@199901/28/19 12/28/23 Acetaminophen [Tylenol Arthritis] 650 mg PO Q6H PRN 12/30/22 12/28/23 Losartan Potassium [Cozaar] 100 mg PO DAILY@1300 12/30/22 12/28/23 amLODIPine [Norvasc] 10 mg PO DAILY@0800 12/30/22 12/28/23 Allergies Allergy/AdvReac Type Severity Reaction Status Date / Time No Known Allergies Allergy Verified 12/28/23 09:45 Review of Systems ROS Statement: Those systems with pertinent positive or pertinent negative responses have been documented in the HPI. ROS Other: All systems not noted in ROS Statement are negative. Constitutional: Denies: fever Eyes: Denies: eye pain ENT: Denies: ear pain Respiratory: Denies: cough Cardiovascular: Denies: chest pain Endocrine: Denies: fatigue Gastrointestinal: Denies: abdominal pain Musculoskeletal: Reports: as per HPI. 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 Dual Chamber Permnent Pacemker, Athritis, Osteoporosis, Breast Cancer History of Any Multi-Drug Resistant Organisms: None Reported Past Surgical History: Joint Replacement, Orthopedic Surgery, Tonsillectomy Additional Past Surgical History / Comment(s): RIGHT ANKLE REPAIRED,LEFT KNEE REPLACED. Bronchoscopy, Liver Biopsy, Past Anesthesia/Blood Transfusion Reactions: No Reported Reaction Type of Cardiac Device: Permanent Pacemaker Device Placement Date:: 2015 Past Psychological History: Anxiety Smoking Status: Former smoker Past Alcohol Use History: None Reported Past Drug Use History: None Reported - Past Family History Mother Family Medical History: No Reported History Father Family Medical History: AICD/Pacemaker Sister(s) Family Medical History: Cancer Additional Family Medical History / Comment(s): BREAST General Exam Limitations: no limitations General appearance: alert, in no apparent distress Head exam: Present: normocephalic Eye exam: Present: normal appearance ENT exam: Present: normal oropharynx Neck exam: Present: normal inspection. Absent: tenderness Respiratory exam: Present: normal lung sounds bilaterally Cardiovascular Exam: Present: regular rate, normal rhythm Expanded Peripheral pulses: 2+: Radial (L), Dorsalis Pedis (L) GI/Abdominal exam: Present: soft. Absent: tenderness Extremities exam: Present: tenderness (Mild tenderness left knee and left proximal forearm. Distally extremities are both neurovascularly intact) Back exam: Present: normal inspection. Absent: tenderness, vertebral tenderness Neurological exam: Present: alert, CN II-XII intact. Absent: motor sensory deficit Psychiatric exam: Present: normal affect, normal mood Skin exam: Present: normal color Course Vital Signs 12/28/23 08:06 Temperature 98.7 F Pulse Rate 60 Respiratory 16 Rate Blood Pressure 114/60 O2 Sat by Pulse 97 Oximetry Medical Decision Making - Medical Decision Making Was pt. sent in by a medical professional or institution (AUDIE Butt, BUILDING CONSULTANT, urgent care, hospital, or long-term...) When possible be specific @ -No Did you speak to anyone other than the patient for history (EMS, parent, family, police, friend...)? What history was obtained from this source @ -Son is present and helps provide history including incident and where patient does have complaints at. Did you review nursing and triage notes (agree or disagree)? Why? @ -I reviewed and agree with nursing and triage notes Were old charts reviewed (outside hosp., previous admission, EMS record, old EKG, old radiological studies, urgent care reports/EKG's, long-term records)? Report findings @ -No old charts were reviewed Differential Diagnosis (chest pain, altered mental status, abdominal pain women, abdominal pain men, vaginal bleeding, weakness, fever, dyspnea, syncope, headache, dizziness, GI bleed, back pain, seizure, CVA, palpatations, mental health, musculoskeletal)? @ -Differential Musculoskeletal Muscular strain, contusion, ligament sprain, fracture, arthritis, septic arthritis, bursitis, cellulitis, muscle spasm, nerve compression, DVT, arterial occlusion, herpes zoster, electrolyte abnormality, tumor.... This is not meant to be in all inclusive list EKG interpreted by me (3pts min.). @ -As above X-rays interpreted by me (1pt min.). @ -X-ray left forearm and left knee do not reveal acute fracture CT interpreted by me (1pt min.). @ -None done U/S interpreted by me (1pt. min.). @ -None done What testing was considered but not performed or refused? (CT, X-rays, U/S, labs )? Why? @ -None What meds were considered but not given or refused? Why? @ -None Did you discuss the management of the patient with other professionals (professionals i.e. AUDIE Butt, BUILDING CONSULTANT, lab, RT, psych nurse, social group worker, electronic wirer, teacher, assistant chief nursing officer, case worker)? Give summary @ -No Was smoking cessation discussed for >3mins.? @ -No Was critical care preformed (if so, how long)? @ -No Were there social determinants of health that impacted care today? How? (Homelessness, low income, unemployed, alcoholism, drug addiction, transportation, low edu. Level, literacy, decrease access to med. care, custodial, rehab)? @ -No Was there de-escalation of care discussed even if they declined (Discuss DNR or withdrawal of care, Hospice)? DNR status @ -No What co-morbidities impacted this encounter? (DM, HTN, Smoking, COPD, CAD, Cancer, CVA, ARF, Chemo, Hep., AIDS, mental health diagnosis, sleep apnea, morbid obesity)? @ -None Was patient admitted / discharged? Hospital course, mention meds given and route, prescriptions, significant lab abnormalities, going to OR and other pertinent info. @ -Patient presents with fall with only mild discomfort of left arm and left knee. No abnormality on x-ray acutely. Patient will be discharged with follow- up. Patient and family updated Undiagnosed new problem with uncertain prognosis? @ -No Drug Therapy requiring intensive monitoring for toxicity (Heparin, Nitro, Insulin, Cardizem)? @ -No Were any procedures done? @ -No Diagnosis/symptom? @ -Knee contusion, fall Acute, or Chronic, or Acute on Chronic? @ -Acute, acute Uncomplicated (without systemic symptoms) or Complicated (systemic symptoms)? @ -Default Side effects of treatment? @ -No Exacerbation, Progression, or Severe Exacerbation? @ -No Poses a threat to life or bodily function? How? (Chest pain, USA, PA, pneumonia, PE, COPD, DKA, ARF, appy, cholecystitis, CVA, Diverticulitis, Homicidal, Suicidal, threat to staff... and all critical care pts) @ -No Disposition Clinical Impression: Fall, Knee contusion Disposition: HOME SELF-CARE Condition: Stable Instructions (If sedation given, give patient instructions): Fall Prevention for Older Adults (ED), Knee Pain (ED) Additional Instructions: Please do follow-up with primary care physician in the next couple of days for recheck. Return for increased pain, other areas of injury or concern, worsening symptoms or other concerns. Ice to affected area. [id number] Tylenol or Motrin as needed. Is patient prescribed a controlled substance at d/c from ED?: No Referrals: Juaquin Gautam MD [Primary Care Provider] - 1-2 days Time of Disposition: 10:00
--- NOTE | 2023-12-28 09:09 | XR ---
EXAMINATION TYPE: XR forearm 2 views LT, XR knee complete 3 views LT DATE OF EXAM: 12/28/2023 COMPARISON: Left hand 12/30/2022 HISTORY: 78-year-old female pain after fall this morning FINDINGS: Left forearm: Synovial and TFC calcifications of the wrist. This could be a neoplastic or could reflect CPPD. Sever e degenerative change base of the thumb. No acute fracture seen. Left knee: Images show left total knee arthroplasty. Both distal femoral and proximal tibial components of the p rosthesis appear well seated without periprosthetic fracture. Mild anterior soft tissue swelling. Ext ensor mechanism appears intact. No significant joint effusion seen. Chronic appearing heterotopic oss ification along the quadriceps tendon. Osteopenia. IMPRESSION: 1. Left forearm: No acute osseous abnormality seen. Severe OA at the basal joint of the thumb. 2. Left knee: Mild anterior soft tissue swelling. Otherwise, uncomplicated left total knee arthroplas ty. [facility], , 12/28/2023 9:06 AM
[2023-12-28 10:24] VITALS: BP 137/66; RESP 18; TEMP 98.3
== END 2023-12-28 10:24 | disposition home or self-care (01) ==
LOC: EC 08:04
CPT/HCPCS: 99283